=== PATIENT | female | born 1945 | race Hispanic/Latino ===

== ENCOUNTER 2018-07-30 15:35 | Inpatient (IN) | payer MEDICARE, OTHER ==
[2018-07-30 15:47] LABS: #Basophils 0.1 thou/uL (0.0-0.2); #Eosinphils 0.1 thou/uL (0.0-0.7); #Lymphocytes 3.4 thou/uL (1.20-3.40); #Monocytes 0.6 thou/uL (0.11-0.59); #Neutrophils 5.9 thou/uL (1.40-6.50); %Basophils 0.5 % (0.0-1.0); %Eosinophils 1.1 % (0.0-10.0); %Lymphocytes 33.7 % (21.0-51.0); %Neutrophils 58.7 % (42.0-75.0); Hemoglobin 12.1 g/dL (12.0-16.0); Mean Corpuscular HGB CONC 33.6 g/dL (32.0-36.0); Mean Corpuscular Hemoglobin 32.2 pg (27.0-31.0); Mean Corpuscular Volume 95.9 fL (78.0-98.0); Mean Platelet Volume 8.4 fL (7.4-10.4); Platelet Count 263 thou/uL (130-400); RBC Distribution Width 11.3 % (11.5-14.5); Red Blood Cell (RBC) Count 3.75 mill/uL (4.20-5.40); White Blood Cell (WBC) Count 10.1 thou/uL (4.8-10.8)
[2018-07-30 15:53] LABS: INR-International Normal Ratio 1.1; PTT 24.9 SEC (22.9-36.1); Prothrombin Time 14.1 SEC (12.0-14.7)
--- NOTE | 2018-07-30 15:53 | CT ---
CT head noncontrast HISTORY: Altered mental status. Left-sided weakness. FINDINGS: Centered at the chaidez-white junction the right frontal lobe is a large lobular mixed density predominantly hyperdense fluid collection surrounded by a small amount of vasogenic edema. The hematoma measures up to 6.6 cm in length by 3.1 cm wide. Diffuse effacement of the right cerebral sul ci. Effacement of the right lateral ventricle with approximately 0.6 cm leftward shift of the septum pellucidum. Very small amount of subarachnoid hyperdense fluid is present within the cerebral sulci closest to th e intraparenchymal hematoma. IMPRESSION: Large right frontal intraparenchymal acute hematoma with small amount of adjacent subarac hnoid hemorrhage and significant cerebral edema, as detailed above. Findings were called to Dr. Thomason in the emergency department at 1543 hours. Code CR
[2018-07-30 16:03] LABS: ALT (SGPT) 23 U/L (8-55); AST (SGOT) 22 U/L (5-34); Albumin 4.1 g/dL (3.4-4.8); Alkaline Phosphatase 85 U/L (40-150); Anion Gap 14 mmol/L (10-20); BUN (Urea Nitrogen) 23 mg/dL (9.8-20.1); Bilirubin, Total 0.2 mg/dL (0.2-1.2); CK (CPK) 85 U/L (29-168); Calc. Creatinine Clearance 0 mL/min (70-130); Calcium 8.8 mg/dL (7.8-10.44); Carbon Dioxide 21 mmol/L (23-31); Chloride 109 mmol/L (98-107); Estimated GFR-MDRD 79; Globulin 2.5 g/dL (2.4-3.5); Glucose 138 mg/dL (83-110); Potassium 4.1 mmol/L (3.5-5.1); Protein, Total 6.6 g/dL (6.0-8.3); Sodium 140 mmol/L (136-145)
[2018-07-30] MEDS ORDERED: Ondansetron PF 4 MG/2 ML Vial ONE (18:05)
[2018-07-30] MEDS ORDERED: Sodium Chloride 0.9% 1,000 ML IV SCH (18:29)
[2018-07-30] MEDS ORDERED: Ondansetron PF 4 MG/2 ML Vial IVP PRN ×2 (18:29→20:09)
[2018-07-30] MEDS: niCARdipine HCl 25 MG in Sodium Chloride 0.9% 250 ML 240 ML IVPB PRN (19:28)
[2018-07-30] MEDS ORDERED: Docusate 100 MG CAP PO PRN (20:09)
[2018-07-30] MEDS ORDERED: Mag-Al 1200 mg/1200 mg/30 ML UDCUP PO PRN (20:09)
[2018-07-30] MEDS ORDERED: Bisacodyl 10 MG SUPP PR PRN (20:09)
[2018-07-30] MEDS ORDERED: Milk Of Magnesia 30 ML UDCUP PO PRN (20:09)
[2018-07-30] MEDS: Sodium Chloride 0.9% 1,000 ML IV SCH (21:16)
[2018-07-30] MEDS: Famotidine/PF 20 mg/2ml Vial SLOW IVP SCH (21:16)
--- NOTE | 2018-07-30 23:49 | CON ---
DATE OF CONSULTATION: 07/30/2018 SERVICE: Pulmonary Medicine. REASON FOR CONSULTATION: ICU patient. HISTORY OF PRESENT ILLNESS: The patient is a 72-year-old white female. She is essentially unknown to our medical record system. She has a history of an intraparenchymal hemorrhage. Apparently, she is visiting from [place] and was in her usual state of health when she had a sudden onset of neurologic symptoms. She was discovered to have a hemorrhagic lesion in the brain, consistent with her neurologic presentation. Neurosurgery saw the patient, but suggested that there was currently no roll for surgical intervention. She was tucked into the ICU for very close neurologic followup. I was consulted because there was a change in her NIH scale when she went from the emergency department to the ICU and they notified me. I wanted to see her just in case she further decompensated throughout the evening. She cannot provide any additional elements of the history at this moment. PAST MEDICAL HISTORY: Unknown. PAST SURGICAL HISTORY: Completely unknown. FAMILY HISTORY: Completely unknown. SOCIAL HISTORY: Completely unknown. ALLERGIES: COMPLETELY UNKNOWN. HOME MEDICATIONS: Completely unknown. Her inpatient medications were reviewed. REVIEW OF SYSTEMS: Cannot be obtained because of the patient's neurologic injury. PHYSICAL EXAMINATION: VITAL SIGNS: Afebrile, pulse 95, blood pressure 159/94, respirations 21, saturation 100% on room air. GENERAL: The patient is awake and alert. She is in no apparent distress. HEENT: Normocephalic and atraumatic. Sclerae are white. Conjunctivae are pink. Oral mucosa is moist without lesions. LUNGS: Decent air entry. Minimal rhonchi are present. There is no prolonged expiratory phase or wheezing present. HEART: Tachycardic. Regular. ABDOMEN: Soft, nontender, and nondistended. Bowel sounds are positive. MUSCULOSKELETAL: No cyanosis or clubbing. There is no pitting in the bilateral lower extremities. NEUROLOGIC: She has a rightward gaze preference. Pupils are equal, round, and reactive. With noxious stimuli to the left upper extremity, she postures. With noxious stimuli to the left lower extremity, it is either very subtle withdrawal , or crossed extensor reflex. She spontaneously and appropriately moves her right upper extremity, and right lower extremity. Strength seems to be 4+/5 in the right upper and lower extremities. : No Macias catheter currently in place. LABORATORY DATA: WBC 10.1, hemoglobin 12.1, platelets 263,000. INR 1.1. Basic metabolic profile and liver function studies are otherwise unremarkable. Troponin is negative x1. IMAGING: CT of the brain demonstrates a large right frontal temporal hematoma. There is small amount of midline shift present. ASSESSMENT: 1. Intraparenchymal hemorrhage. 2. Hypertension. DISCUSSION AND PLAN: At this point, I agree with Neurosurgery that medical management is indicated. This a non-dominant hemisphere intraparenchymal hemorrhage. That being said, since it is quite superficial, if there is clinical deterioration, surgical intervention may have a roll. I will be aggressive with blood pressure control and do what we can to keep her systolics under 140. Cardene drip has been initiated to make certain we maintain tight control of blood pressures. Once family arrives, we will do what we can to get a touch more history. At this point, her Orting Coma Scale is 12. As such, there is no role for invasive endotracheal tube. She remains at high risk for developing pneumonia. If she has a fever, tobias culture and chest x-ray will be done and I will have a low threshold for starting empiric antibiotics. Pulmonary Critical Care will continue to follow very closely. She will remain in the ICU, so we can watch her neurologic function every hour. 70 minutes have been devoted to this patient in various activities. I personally reviewed all imaging studies and laboratory data noted within this document. For fifty percent of this time, I was interacting with the patient at the bedside or coordinating care with the care team. For the remainder of the time I was immediately available to the patient in the hospital unit. Job ID: [id number] [facility]
--- NOTE | 2018-07-31 02:07 | HP ---
HISTORY OF PRESENT ILLNESS: Ms. Valentin is a 72-year-old female who reported to the hospital today for left-sided facial droop, altered mental status and left-sided weakness. The patient also has a left-sided visual field neglect. Neurosurgery was consulted given the CT shows intraparenchymal hemorrhage on the right side. As I entered the emergency room, the patient was resting in her hospital bed. She has recently vomited and is complaining about the wetness on the sheets and her clothing. She has neglect of her left side and looks only through the right. She responds minimally to questions, but follows commands. She shows me her thumb on her right hand and is able to squeeze my hands. She also follows commands on the right lower extremity wiggling her toes, moving her leg. The patient does not complain of any pain, just some nausea at this time. The patient has withdrawal to painful stimuli in the left lower extremity and no response though in left upper extremity. Brief conversation with the patient's treating neurologist and her via phone. Her gave consent to discuss treatment and her history with her treating physicians, resident at [facility]. The patient has a history of previous bleed in 2005 on the right temporal area as well. She is currently being treated following. She has recovered well from that previous stroke with some chronic cognitive difficulties. REVIEW OF SYSTEMS: A 10-point review of systems has been completed and is negative other than stated in the above HPI. ALLERGIES: NO KNOWN DRUG ALLERGIES. MEDICATIONS: No reported medications. SOCIAL HISTORY: Unable to obtain at this time. PHYSICAL EXAMINATION: VITAL SIGNS: Temperature is 98.0, blood pressure 143/57, heart rate 69, respirations 18, and O2 saturation 100% on room air. CONSTITUTIONAL: The patient in normotensive, afebrile and appeared nontoxic. HEENT: Head is normocephalic and atraumatic. Pupils are unequal, the left is dilated and unreactive to light. She has left-sided facial droop and left-sided neglect. Hearing is intact. Moist mucous membranes. EXTREMITIES: The patient is moving and following commands with the right upper extremity, gives me a good thumbs-up and good strong squeeze and moving shoulder and elbow well. The right lower extremity, she is wiggling her toes and moving her knees, is not following commands as clearly as on the right lower extremity. Left lower extremity, she is withdrawing to painful stimuli and the left upper extremity, she is not moving at all to painful stimuli or any other sensations. NEUROLOGIC: The patient is awake and alert, but she has a left-sided facial droop. She has right gaze, left-sided neglect. She had 0/5 strength in the left upper extremity, and in the left lower extremity, withdraws to pain. She does not seem to react to any sensation on the left side of her face. She can feel the right side of her face. Her right pupil is reactive, the left pupil is dilated and unreactive. Hearing is intact. Speech is spontaneous; however slurred. RESPIRATORY: Normal work of breathing on room air. Symmetrical chest rise. CARDIAC: Regular rate and rhythm. Normal S1, S2. IMAGING: CT of the brain shows a half a large right frontal intraparenchymal hemorrhage with a small of adjacent subarachnoid hemorrhage and significant cerebral edema. She has approximately 6 mm of leftward shift of the midline. ASSESSMENT AND PLAN: Ms. Valentin is a 72-year-old female, who sustained a large intraparenchymal hemorrhage. She will be admitted to the hospital. We will get neuro checks every 2 hours. We will keep her blood pressure in the [address] with a repeat CT scan in the morning. She is not on any blood thinners, which is a good news. Her hemorrhage does reach the surface of the brain, which gives us the opportunity if the patient and her would like us to operate, we would be able to more easily evacuate the clot. If there is any, which we do not intend to operate immediately and if there is any deterioration, we can discuss with the patient's at earlier time. Job ID: [id number]
--- NOTE | 2018-07-31 06:49 | CT ---
CT OF THE BRAIN WITHOUT CONTRAST: Date: 07/31/18 INDICATION: Follow-up intraparenchymal hemorrhage. COMPARISON: Prior exam dated 07/30/18. FINDINGS: Since the comparison examination dated 07/30/18 at 1538 hours, the intraparenchymal hematoma in the r ight frontal lobe has increased in size, now measuring 7.6 x 4.7 cm, with slightly worsening surround ing vasogenic edema. There is more pronounced sulcal effacement of the right frontal cerebral convexi ty. There is worsening right to left midline shift of 7.7 mm. No hydrocephalus is evident. Basilar ci sterns remain patent. Skull and extracranial soft tissues are unremarkable appearing. IMPRESSION: Slight worsening of the intraparenchymal hematoma with vasogenic edema involving the right frontal lo be. There is worsening right to left midline shift. Findings were called to Justa Mccauley at 0448 hours on 07/31/18. CODE CR. POS: [facility]
[2018-07-31] MEDS: niCARdipine HCl 25 MG in Sodium Chloride 0.9% 250 ML 240 ML IVPB PRN ×2 (08:06→16:44)
[2018-07-31] MEDS ORDERED: Acetaminophen 1,000 MG in Premix Bag 1 BAG IVPB PRN (08:15)
[2018-07-31] MEDS ORDERED: diphenhydrAMINE 50 MG/ML VIAL IVP PRN (08:16)
--- NOTE | 2018-07-31 09:05 | PRG ---
DATE OF SERVICE: 07/31/2018 I met Jayden Valentin in her ICU room this morning. She was admitted yesterday with a lobar intracerebral hemorrhage. 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 She was treated for this at [facility] by Neurology. This was in 2016. Now, we are three years later with a similar event. She was found down in her house yesterday and brought to the emergency department, where an intracerebral hemorrhage more superior to her previous hemorrhage was identified. Although there is some mass effect and local moderate shift from right to left, she is awake on purposeful. On seeing her this morning, she is a little less responsive, but she does move her arms purposefully. She follows some commands. She opens her eyes to significant stimulus. Otherwise, she rests comfortably and rearranges her bed clothes. Her vitals have all been stable overnight. I do not see a fever or any high blood pressures recorded. I reviewed CT image of the brain this morning. The vasogenic edema surrounding the hemorrhage has increased in size. The hemorrhage itself is slightly increased in size. The shift is increased. I had a long discussion with Mr. Valentin about treatment of his . This lobar intracerebral hemorrhage reaches the cortical surface. As such, she falls into a category of intracerebral hemorrhage patients, where there was some benefit to surgical intervention as far as shortening her length of stay and decreasing complications. Because of the increase in size and the slightly worsening neurological examination, I offered surgery to Mr. Valentin. He refused to have any surgery done here. He wants to get her back to [facility] as soon as possible. I explained that she is unsafe to travel across the country currently. I asked him to identify some local hospitals here or in [place], where he would prefer to have her treated. He does not want to transfer her locally. This puts us in a bit of a bind. I am going to watch her neurological examination over the next two days, but I anticipate some more deterioration. If she deteriorates anymore, she will need intubation to protect her airway. Eventually, we will need to talk about a tracheostomy and a gastrostomy. We will use medications to decrease the swelling as best we can, but operative intervention would be my preference currently. I will plead with him for operative intervention, if she deteriorates. He is open to the idea of me returning to ask for his approval for surgery, but right now, he does not want it to happen. Job ID: [id number] MTDD
[2018-07-31] MEDS: Famotidine/PF 20 mg/2ml Vial SLOW IVP SCH ×2 (10:31→20:57)
[2018-07-31] MEDS: Sodium Chloride 0.9% 1,000 ML IV SCH ×2 (10:32→18:37)
--- NOTE | 2018-07-31 12:27 | RAD ---
Abdomen one view HISTORY: Dobbhoff placement. FINDINGS: Visualized bowel gas pattern is nonspecific. Dobbhoff feeding catheter is coiled over the u pper mid abdomen with the metallic tip over the expected location of the gastric fundus.
--- NOTE | 2018-07-31 16:30 | PRG ---
DATE OF SERVICE: 07/31/2018 SERVICE: Pulmonary Medicine. INTERVAL HISTORY: The patient is doing fine from respiratory standpoint. She has not had any significant decline in neurologic function overnight. She cannot provide any additional elements of the history. Otherwise, there has been no interval change to her condition. She did not have any fevers. She seems to be protecting her airway at this point. PHYSICAL EXAMINATION: VITAL SIGNS: Afebrile. Pulse 79, blood pressure 124/58, respirations 14, saturation 97% on room air. GENERAL: The patient is stuporous/somnolent. HEENT: Normocephalic and atraumatic. Sclerae white. Conjunctivae pink. Oral mucosa is moist without lesions. LUNGS: Decent air entry. No prolonged expiratory phase or wheezing is present. HEART: Normal rate regular. ABDOMEN: Soft, nontender, nondistended. Bowel sounds are positive. MUSCULOSKELETAL: No cyanosis or clubbing. There is no pitting in the bilateral lower extremities. NEUROLOGIC: I see roughly the same neurologic exam that I saw yesterday evening. IMAGING STUDIES: CT of the brain demonstrates slight worsening of the intraparenchymal hematoma with vasogenic edema involving the right frontal lobe. Worsening of midline shift. ASSESSMENT: 1. Intraparenchymal hemorrhage. 2. Hypertension. DISCUSSION AND PLAN: At this point, we will continue our supportive measures. Neurosurgery is trying to discuss the risks of not pursuing surgery at this moment. We will initiate feeds and place a Dobbhoff tube to facilitate this. I will introduce some p.o. blood pressure medications. We will involve physical therapy and occupational therapy, but strict bedrest is mandatory. IV fluids will be interrupted when she is tolerating tube feeds. We will also empirically initiate some antibiotics as there was a report of vomitus and possible aspiration in the Emergency Department. Critical Care will continue to follow along, and she will certainly need to remain in the ICU for frequent neuro checks. Job ID: [id number] [facility]
[2018-07-31] MEDS: Carvedilol 3.125 MG TAB PO SCH (16:58)
[2018-07-31] MEDS: Amoxicillin/Potassium Clav 400 mg/5 ml Oral Suspension PO SCH (20:57)
[2018-08-01 07:01] LABS: #Basophils 0.1 thou/uL (0.0-0.2); #Lymphocytes 1.8 thou/uL (1.20-3.40); #Monocytes 0.6 thou/uL (0.11-0.59); #Neutrophils 9.1 thou/uL (1.40-6.50); %Basophils 0.5 % (0.0-1.0); %Eosinophils 0.2 % (0.0-10.0); %Lymphocytes 15.5 % (21.0-51.0); %Monocytes 5.1 % (0.0-10.0); %Neutrophils 78.7 % (42.0-75.0); Mean Corpuscular HGB CONC 33.5 g/dL (32.0-36.0); Mean Corpuscular Hemoglobin 31.7 pg (27.0-31.0); Mean Corpuscular Volume 94.8 fL (78.0-98.0); Platelet Count 243 thou/uL (130-400); RBC Distribution Width 11.4 % (11.5-14.5); Red Blood Cell (RBC) Count 3.48 mill/uL (4.20-5.40); White Blood Cell (WBC) Count 11.6 thou/uL (4.8-10.8)
[2018-08-01 07:22] LABS: Anion Gap 11 mmol/L (10-20); BUN (Urea Nitrogen) 16 mg/dL (9.8-20.1); Calc. Creatinine Clearance 78 mL/min (70-130); Calcium 8.2 mg/dL (7.8-10.44); Carbon Dioxide 24 mmol/L (23-31); Chloride 110 mmol/L (98-107); Estimated GFR-MDRD 78; Glucose 142 mg/dL (83-110); Potassium 3.6 mmol/L (3.5-5.1); Sodium 141 mmol/L (136-145)
[2018-08-01] MEDS ORDERED: Carvedilol 3.125 MG TAB PO SCH ×2 (08:00→17:00)
[2018-08-01] MEDS: Carvedilol 3.125 MG TAB PO SCH (08:00)
[2018-08-01] MEDS: Sodium Chloride 0.9% 1,000 ML IV SCH (08:01)
[2018-08-01] MEDS: Famotidine/PF 20 mg/2ml Vial SLOW IVP SCH ×2 (08:01→20:41)
[2018-08-01] MEDS: Amoxicillin/Potassium Clav 400 mg/5 ml Oral Suspension PO SCH ×2 (08:02→20:41)
--- NOTE | 2018-08-01 08:38 | CT ---
CT BRAIN PERFORMED WITHOUT CONTRAST ENHANCEMENT: Date: 08/01/18 HISTORY: Follow-up of intraparenchymal hemorrhage. FINDINGS: The large area of intraparenchymal hemorrhage in the right frontal lobe with surrounding vasogenic ed casi appears fairly similar in appearance. Shift of midline structures is slightly greater than 7 mm t o the left again noted. No new hemorrhage. IMPRESSION: Stable right-sided intraparenchymal hemorrhage and mass effect. POS: [facility]
--- NOTE | 2018-08-01 10:30 | PRG ---
DATE OF SERVICE: 08/01/2018 SERVICE: Pulmonary Medicine. INTERVAL HISTORY: The patient is tolerating tube feeds just fine. Mentation osullivan, things are stable, if not slightly improved over the last 24 hours. She had repeat imaging today. There has been no interval change to her condition otherwise. PHYSICAL EXAMINATION: VITAL SIGNS: Afebrile, pulse 63, blood pressure 130/53, respirations 18, and saturation 94% on room air. GENERAL: The patient is awake and alert this morning. She opens up her eyes with minimal stimulation. She is talking in some very simple sentences. Her speech is little bit tough to understand, but she is saying appropriate words. HEENT: Normocephalic and atraumatic. Sclerae white. Conjunctivae pink. Oral mucosa is moist without lesions. LUNGS: Decent air entry. I do not appreciate rhonchi today. No prolonged expiratory phase or wheezing is appreciated. HEART: Normal rate regular. ABDOMEN: Soft, nontender, nondistended. Bowel sounds are positive. MUSCULOSKELETAL: No cyanosis or clubbing. There is no pitting in the bilateral lower extremities. NEUROLOGIC: She withdraws from noxious stimuli to the left lower extremity. She seems to withdraw in the left upper extremity, though she has more profound weakness there. Her pupils are equal, round, and reactive. She has a rightward gaze preference. She is following commands with the upper and lower extremity on the right by putting her thumb in the air, and wiggling her toes on command. She is speaking in simple phrases, which are appropriate. Her speech is tough to understand. Her level of consciousness is slightly decreased, but she is no longer stuporous. LABORATORIES: WBC 11.6, hemoglobin 11.0, and platelets 243,000. INR 1.1. Sodium 141. Basic metabolic profile is otherwise unremarkable. IMAGING: CT of the brain demonstrates intraparenchymal hemorrhage, which is roughly stable. ASSESSMENT: 1. Intraparenchymal hemorrhage. 2. Hypertension. DISCUSSION AND PLAN: We will continue supportive measures. I had a conversation yesterday with the patient's . He understands that he and Neurosurgery will decide together whether or not the patient would want to pursue a surgical intervention. He understands that my primary role here is to determine whether or not endotracheal tube needs to be placed in order to protect her airway. Since she is tolerating tube feeds, I will interrupt her IV fluids. Blood pressure medications will be escalated gently, and will will wean the Cardene drip as tolerated. Job ID: [id number] [facility]
--- NOTE | 2018-08-01 11:16 | PRG ---
DATE OF SERVICE: 08/01/2018 I saw Marlyn Valentin in her ICU room this morning. Her was not at the bedside. Ms. Valentin is not waking up to have any complaints. Per nursing reports, spontaneous and purposeful movement more so on the right than the left, but the left has had some movement, especially in the legs. She had a low-grade fever at 100.6, but she is on amoxicillin. On examination, Ms. Valentin opens her eyes to loud voice. She spoke to me in a few words. Could comprehend the words and these seemed a bit confused and then she drifts back to sleep. She did squeeze my hand when I asked her to do. She did wiggle her right toes when I asked her to. She required some stimulation on the left side for her to be, aware of that side and move it purposefully. Her left arm is not moving as much as her left leg. I reviewed CT imaging of the brain this morning. This shows lobar intracerebral hemorrhage likely related to amyloid angiopathy. This is in the right hemisphere above an area of encephalomalacia related to her prior hemorrhage in 2016. Hemorrhage is not changed in size since yesterday. The swelling is causing some midline shift, which has only increased to about half a millimeter compared to what it was before. I believe Ms. Valentin would recover faster with surgical intervention. Her has refused to allow me to do it. We will continue to monitor her. If she has neurological deterioration, she warrants surgery. She may require intubation. She is going to fail her swallowing test and a percutaneous endoscopic gastrostomy will be recommended. I cannot say what the is going to respond to that recommendation. Job ID: [id number] MTDD
[2018-08-01] MEDS ORDERED: Carvedilol 6.25 MG TAB PO SCH (19:45)
[2018-08-02] MEDS: niCARdipine HCl 25 MG in Sodium Chloride 0.9% 250 ML 240 ML IVPB PRN (06:35)
--- NOTE | 2018-08-02 07:32 | PRG ---
DATE OF SERVICE: 08/02/2018 Marlyn Valentin is now approaching three days out from intracerebral hemorrhage. Today would be the day of maximal swelling. Overnight, the nurses did not report any issues and that she still follows commands on the right side. When I entered the room, Ms. Valentin is resting comfortably. If I say her name loudly enough, she opens her eyes and lifts her thumb to command and wiggles her toes to command. She withdraws the left lower extremity and left upper extremity, but she is not moving them spontaneously to command yet. She said a few words to me yesterday and mouthed a good morning this morning. Yesterday, sodium is 141. Labs are pending now. CT scan is pending as well. There is no change between yesterday's CT scan and the day before. If we have another stable scan today, that should be the last one. Ms. Valentin is going to make a slow, but steady recovery from this over time. Hopefully, she does not have any complications like DVT or pneumonia. Eventually, she will need placement in to a fci facility or inpatient rehabilitation depending on how fast she improves. Whereas, Ms. Valentin might have benefited from a craniotomy for evacuation of the hematoma, her was adamant that he did not want surgery to be performed here. We were respecting those wishes and doing the best we can medically. Job ID: [id number]
[2018-08-02] MEDS: Famotidine/PF 20 mg/2ml Vial SLOW IVP SCH ×2 (08:25→20:56)
[2018-08-02] MEDS: Carvedilol 6.25 MG TAB PO SCH ×2 (08:25→16:39)
[2018-08-02] MEDS: Amoxicillin/Potassium Clav 400 mg/5 ml Oral Suspension PO SCH ×2 (08:26→20:56)
--- NOTE | 2018-08-02 08:26 | CT ---
CT HEAD WITHOUT CONTRAST: INDICATIONS: Cranial hemorrhage. Fall. FINDINGS: Redemonstration of a large, mixed density hematoma occupying the anterior aspect of the right cerebral hemisphere with associated mass effect and midline shift. Prev ious 7 mm of leftward subfalcine herniation is grossly stable. Redemonstration of internal hemorrhag e/fluid layering. Otherwise, no additional significant interval change. IMPRESSION: Redemonstration of large, mixed density hematoma, occupying the anterior right cerebral hemisphere, w ith associated mass effect and leftward subfalcine herniation. Continued followup is recommended. POS: [facility]
[2018-08-02 08:49] LABS: Anion Gap 10 mmol/L (10-20); BUN (Urea Nitrogen) 14 mg/dL (9.8-20.1); Calc. Creatinine Clearance 88 mL/min (70-130); Calcium 8.3 mg/dL (7.8-10.44); Carbon Dioxide 24 mmol/L (23-31); Chloride 109 mmol/L (98-107); Estimated GFR-MDRD Greater than 90; Glucose 114 mg/dL (83-110); Potassium 3.4 mmol/L (3.5-5.1); Sodium 140 mmol/L (136-145)
--- NOTE | 2018-08-02 10:38 | PRG ---
DATE OF SERVICE: 08/02/2018 SUBJECTIVE: This patient will wake up when stimulated. She tries to verbalize. She says she is doing okay. She cannot move her left side very well. OBJECTIVE: VITAL SIGNS: Temperature is 99.9, pulse 56, blood pressure 132/54, O2 saturation 95% on room air. Total intake 3040, output 2200. HEENT: Unremarkable except for Dobbhoff tube in place. NECK: No JVD. LUNGS: Coarse rhonchi bilaterally. CARDIAC: S1 and S2. Regular. ABDOMEN: Soft and nontender. EXTREMITIES: No edema. IMAGING DATA: Head CT shows no change in the right intraparenchymal bleed. LABORATORY DATA: Sodium 140, potassium 3.4, chloride 109, CO2 of 24, BUN 14, creatinine 0.6, glucose 114. ASSESSMENT: 1. Intraparenchymal brain hemorrhage. 2. Hypertension. 3. Hypokalemia. PLAN: 1. Replace potassium. 2. Start amlodipine and try to get her off the nicardipine drip. 3. Apparently the patient's is refusing surgical intervention for the bleed, so this is being treated medically. Job ID: [id number]
[2018-08-02] MEDS: Amlodipine 10 MG TAB PER TUBE SCH (11:46)
--- NOTE | 2018-08-02 14:54 | CON ---
DATE OF CONSULTATION: PRIMARY CARE PROVIDER: Unknown. CONSULTING PHYSICIAN: Neurosurgery, Love Alcaraz MD REASON FOR CONSULTATION: Management of medical comorbidities. HISTORY OF PRESENT ILLNESS: Ms. Valentin is a pleasant 72-year-old lady, who was seen at [facility] on August 02, 2018, for management of medical comorbidities. She was admitted to this hospital on July 30, 2018, for large intraparenchymal hemorrhage. Neurosurgery Service recommended surgical intervention. However, the patient's wished to have conservative measures at this time. I am unable to obtain any history from Ms. Valentin. She is mumbling, but the words are not clear. REVIEW OF SYSTEMS: Could not be completed secondary to patient's nonverbal status. PAST MEDICAL HISTORY: The patient reportedly had stroke in the past. She is also on memantine, suggesting a prior diagnosis of dementia. PAST SURGICAL HISTORY: Could not obtain. ALLERGIES: NO KNOWN DRUG ALLERGIES. HOME MEDICATIONS: Memantine 10 mg daily. SOCIAL HISTORY: Unable to obtain. FAMILY HISTORY: Could not obtain. PHYSICAL EXAMINATION: GENERAL: On examination, Ms. Valentin is sleepy, but arousable, not in acute distress. VITAL SIGNS: Blood pressure is 135/54, pulse 53, oxygen saturation is 96% on room air. She is afebrile. EYES: No scleral icterus, no conjunctival pallor. She has arcus senilis. ENT: Moist mucosal membranes. No oropharyngeal erythema or exudates. NECK: Supple, nontender, trachea midline. RESPIRATORY: Accessory muscles of breathing are not active. Chest wall movements are symmetric bilaterally. LUNGS: Clear to auscultation without wheeze, rhonchi, or crepitations. CARDIOVASCULAR: S1 and S2 are heard, regular. Peripheral pulses palpable. No carotid bruit. No pericardial rub. ABDOMEN: Soft, nontender, bowel sounds heard. NEUROLOGIC: Full neurologic examination was not possible secondary to patient's noncooperation. She has left facial droop. She also has left hemiplegia and left hemineglect. SKIN: No rashes or subcutaneous nodules. LYMPHATIC: No cervical lymphadenopathy. PSYCHIATRIC: Unable to assess mood, affect or orientation to person, place, or time. MUSCULOSKELETAL: Left-sided weakness. LABORATORY DATA: Ms. Valentin's labs and investigations were reviewed. She has normal sodium, decreased potassium of 3.4, normal creatinine, and normal blood urea nitrogen today. Repeat CT scan of the brain, noncontrast, showed redemonstration of large mixed density hematoma occupying the anterior right cerebral hemisphere with associated mass-effect and leftward subfalcine herniation. ASSESSMENT AND PLAN: Ms. Valentin is a pleasant 72-year-old lady, who was seen at [facility] on August 02, 2018. Her problem list includes: 1. Intracranial hemorrhage: Ms. Valentin is admitted to the hospital for intracranial hemorrhage. She is being managed by Neurosurgery Service. Further decisions regarding surgery versus conservative management depending on discussions between Neurosurgery Service and patient's family. 2. Hypokalemia: Potassium is being replaced. 3. Dementia: Suspected. We will resume memantine when patient is able to take oral medications. Given her current status, it is very likely that she may need a percutaneous feeding tube. 4. Level of risk: Moderate. 5. Level of complexity: Moderate. Job ID: [id number]
[2018-08-03] MEDS: niCARdipine HCl 25 MG in Sodium Chloride 0.9% 250 ML 240 ML IVPB PRN ×2 (00:29→06:14)
[2018-08-03 06:16] LABS: Anion Gap 12 mmol/L (10-20); BUN (Urea Nitrogen) 19 mg/dL (9.8-20.1); Calc. Creatinine Clearance 87 mL/min (70-130); Calcium 8.7 mg/dL (7.8-10.44); Carbon Dioxide 23 mmol/L (23-31); Chloride 107 mmol/L (98-107); Estimated GFR-MDRD 89; Glucose 134 mg/dL (83-110); Potassium 3.7 mmol/L (3.5-5.1); Sodium 138 mmol/L (136-145)
--- NOTE | 2018-08-03 07:37 | CT ---
CT HEAD NONCONTRAST: INDICATIONS: Intracranial hemorrhage. Followup. COMPARISON: Exam from the previous day. FINDINGS: Again demonstrated, there is a large volume of mixed density hematoma with surrounding vasogenic santiago a occupying the anterior and right cerebral hemisphere, with associated mass effect and midline shift . The 7 mm of leftward subfalcine herniation at the level of the septum pellucidum is grossly stable . There is suggestion of inferiorly directed mass effect involving the temporal lobe with a slight d egree of right-sided uncal herniation, which may be developing. A slight asymmetric of the left temp oral horn is also noted. There is stable right frontal lobe encephalomalacia. IMPRESSION: Re demonstration of a large, mixed density hematoma with prominent vasogenic edema centered at the an terior right cerebral hemisphere, with prominent mass effect and midline shift. Suggestion of inferi hank directed mass effect as well, with the potential for developing right uncal herniation and asymm etric prominence of the left temporal horn that may relate to a component of ventricular trapping. C lose continued followup in this regard is recommended. POS: [facility]
[2018-08-03] MEDS: Carvedilol 6.25 MG TAB PO SCH ×2 (08:08→17:09)
[2018-08-03] MEDS: Famotidine/PF 20 mg/2ml Vial SLOW IVP SCH ×2 (08:08→20:00)
[2018-08-03] MEDS: Amoxicillin/Potassium Clav 400 mg/5 ml Oral Suspension PO SCH ×2 (08:09→19:55)
--- NOTE | 2018-08-03 08:44 | PRG ---
DATE OF SERVICE: 08/03/2018 SUBJECTIVE: The patient remains in the CCU on a Cardene drip. She would not communicate with me, but will look around. She moves her right side spontaneously. OBJECTIVE: VITAL SIGNS: Temperature 98.4, pulse 62, blood pressure 130/59, 24-hour intake 2913, output 2450. HEENT: Has facial droop on the right. NECK: No JVD. CHEST: Clear to auscultation. CARDIAC: S1, S2 regular, without murmur. ABDOMEN: Soft. Nontender. EXTREMITIES: No edema. LABORATORY DATA: Sodium 138, potassium 3.7, chloride 107, CO2 of 23, BUN 19, creatinine 0.6, glucose 134. Brain CT from this morning demonstrated mixed density hematoma with prominent vasogenic edema centered at the right cerebral hemisphere with prominent mass effect and midline shift. Radiologist felt this had enough mass effect for possibility of herniation. ASSESSMENT: 1. Intraparenchymal brain hemorrhage. 2. Hypertension. 3. Hypokalemia. PLAN: The goal is to wean her off the nicardipine drip today. Her medical issues seem to be stable otherwise. She is currently receiving amlodipine and carvedilol for her hypertension. I think, goal systolic pressure should be less than 150 to wean her off the drip. Job ID: [id number]
--- NOTE | 2018-08-03 09:34 | RAD ---
EXAM: XR Abdomen 1 View/KUB PROVIDED CLINICAL HISTORY: Dobbhoff feeding tube placement evaluation. COMPARISON: 07/31/2018 FINDINGS: There is been repositioning of the Dobbhoff feeding tube. The Dobbhoff feeding tube is coiled overlyi ng the central abdomen and overlies expected location of the body of the stomach. Bowel gas pattern is nonspecific. No other interval change. IMPRESSION: Dobbhoff feeding tube coiled overlying the central abdomen which overlies the expected location of th e body of the stomach.
--- NOTE | 2018-08-03 11:34 | PRG ---
DATE OF SERVICE: 08/03/2018 Jessica Valentin is now on the 4th day of her hospital admission for what appears to be a right-sided frontoparietal amyloid hemorrhage. Early in her admission, Dr. Alcaraz had suggested heavily decompressive hemicraniectomy with evacuation of a superficial clot. The patient's family has refused repeatedly at this time. Now, we are just managing her medically and conservatively. She remains in the ICU. She does follow commands on the right side, although intermittently. Her level of consciousness since morning is somewhat subdued. Repeat CT scanning revealed stable hemorrhage and maybe very marginally increased edema if any around this clot. Blood pressures and pulse rate as well as oxygenation all appear normal to me today. Most recently, at 8 o'clock this morning, it was 130/59 and 58 and 95 respectively. The Hospitalist Service has also seen the patient as of yesterday. We appreciate their consultation and recommendations. We will discuss plan going forward with Dr. Dominguez as we are still only pursuing conservative management at this point. Job ID: [id number]
[2018-08-03] MEDS: Amlodipine 10 MG TAB PER TUBE SCH (12:04)
--- NOTE | 2018-08-03 12:06 | PRG ---
DATE OF SERVICE: 08/03/2018 Ms. Valentin is a 72-year-old female, admitted on the for large intracerebral hemorrhage. The initial evaluation by Neurosurgery in consultation with the family revealed a wish towards nonsurgical management of her hemorrhage. She remains in the ICU. She had a repeat CT examination today, which showed slight worsening of the hemorrhage. The plan moving forward will remain 1 of nonsurgical management. We will sign off to the Hospitalist Service as well as Critical Care service for ongoing medical management. Job ID: [id number]
--- NOTE | 2018-08-03 15:13 | PDOC.PN ---
- Subjective Encounter Start Date: 08/03/18 Encounter Start Time: 15:12 Subjective: care discussed w at bedside -: Pt largely unresponsive But RN reports sometimes she opens eyes to verbal -: stimuli.reportedly moves R side sometimes - Objective MAR Reviewed: Yes Vital Signs & Weight: Vital Signs (12 hours) Temp Pulse Pulse BP BP BP Pulse Ox 08/03/18 12:04 147/72 H 08/03/18 12:00 98.6 F 08/03/18 11:24 60 61 132/81 124/55 L 08/03/18 08:08 130/59 L 08/03/18 08:00 98.4 F 98 08/03/18 04:00 98.8 F Pulse Ox Pulse Ox 08/03/18 12:04 08/03/18 12:00 08/03/18 11:24 98 98 08/03/18 08:08 08/03/18 08:00 08/03/18 04:00 Weight Admit Weight 161 lb Weight 160 lb Most Recent Monitor Data Heart Rate from ECG 65 NIBP 126/80 NIBP BP-Mean 95 Respiration from ECG 16 SpO2 97 I&O: 08/02/18 08/03/18 08/04/18 06:59 06:59 06:59 Intake Total 3040 2913 Output Total 2200 2450 335 Balance 840 463 -335 Result Diagrams: 08/01/18 06:55 08/03/18 05:40 Phys Exam - Physical Examination Constitutional: NAD sitting up in neuro chair w support.johns snot open eyes or follow commands HEENT: moist MMs, sclera anicteric, oral pharynx no lesions Neck: no nodes, no JVD Respiratory: no wheezing, clear to auscultation bilateral Cardiovascular: RRR, no significant murmur Gastrointestinal: soft, non-tender, no distention, positive bowel sounds Musculoskeletal: no edema, pulses present left hemiparesis Skin: no rash Dx/Plan (1) ICH (intracerebral hemorrhage) Code(s): I61.9 - NONTRAUMATIC INTRACEREBRAL HEMORRHAGE, UNSPECIFIED Status: Acute Qualifiers: Intracerebral hemorrhage etiology: nontraumatic Cerebral hemorrhage location: cerebral hemisphere, cortical portion Laterality: right Qualified Code(s): I61.1 - Nontraumatic intracerebral hemorrhage in hemisphere, cortical Comment: NS offered decompressive SX but family refused. Discussed w at bedside (2) Acute encephalopathy Code(s): G93.40 - ENCEPHALOPATHY, UNSPECIFIED Status: Acute Comment: due to #1 (3) Uncontrolled hypertension Code(s): I10 - ESSENTIAL (PRIMARY) HYPERTENSION Status: Acute Comment: improving.Titrate Nicardipine drip off (4) Cerebral amyloid angiopathy Code(s): E85.4 - ORGAN-LIMITED AMYLOIDOSIS; I68.0 - CEREBRAL AMYLOID ANGIOPATHY Status: Chronic (5) H/O: CVA (cerebrovascular accident) Code(s): Z86.73 - PRSNL HX OF TIA (TIA), AND CEREB INFRC W/O RESID DEFICITS Status: Chronic - Plan plan discussed w/ family, DVT proph w/SCDs Unsure if pt will clinically improve or survive this massive ICH.high risk -: of herniation. continues to refuse surgical intervention -: will need to address Code status as high risk of decompensation -: will consult PCT.cont supportive care for now -: Dobhoff in place, start TF/ * .BP better controlled since started on PO meds. add prn anti hypertensives * titrate Cardene drip off * am labs * will follow Review of Systems - Review of Systems Other: can not be obtained due to Unresponsiveness from ICH - Medications/Allergies Allergies/Adverse Reactions: Allergies Allergy/AdvReac Type Severity Reaction Status Date / Time No Known Allergies Allergy Verified 07/31/18 04:41 Medications: Current Medications Acetaminophen (Tylenol) 650 mg PO Q6H PRN PRN Reason: Fever > 101 or Headache Al Hydroxide/Mg Hydroxide (Maalox) 30 ml PO QIDPRN PRN PRN Reason: Dyspepsia Amlodipine Besylate (Norvasc) 10 mg PER TUBE 1200 GOVIND Last Admin: 08/03/18 12:04 Dose: 10 mg Amoxicillin/Clavulanate Potassium (Augmentin 400mg/5ml Oral Susp) 800 mg PO BID GOVIND Stop: 08/05/18 21:01 Last Admin: 08/03/18 08:09 Dose: 800 mg Bisacodyl (Dulcolax) 10 mg NC DAILYPRN PRN PRN Reason: Constipation Carvedilol (Coreg) 6.25 mg PO BID-[facility] Last Admin: 08/03/18 08:08 Dose: 6.25 mg Diphenhydramine HCl (Benadryl) 25 mg IVP Q6H PRN PRN Reason: Itching & Insomnia Docusate Sodium (Colace) 100 mg PO BIDPRN PRN PRN Reason: Constipation Famotidine (Pepcid) 20 mg SLOW IVP Q12HR [facility] Last Admin: 08/03/18 08:08 Dose: 20 mg Nicardipine HCl 25 mg/ Sodium (Chloride) 250 mls @ 0 mls/hr IVPB INF PRN; Protocol PRN Reason: TO KEEP SBP <140 Last Admin: 08/03/18 06:14 Dose: 250 mls Magnesium Hydroxide (Milk Of Magnesium) 30 ml PO BIDPRN PRN PRN Reason: Constipation Ondansetron HCl (Zofran) 4 mg IVP BIDPRN PRN PRN Reason: Nausea/Vomiting Sodium Chloride (Flush - Normal Saline) 10 ml IVF Q12HR [facility] Last Admin: 08/03/18 08:09 Dose: 10 ml Sodium Chloride (Flush - Normal Saline) 10 ml IVF PRN PRN PRN Reason: Saline Flush
[2018-08-03] MEDS ORDERED: cloNIDine 0.1 MG TAB PO PRN (15:21)
[2018-08-03] MEDS: Acetaminophen 325 MG TAB PO PRN (19:47)
[2018-08-03] MEDS: hydrALAZINE 20 MG/ML VIAL SLOW IVP PRN (22:23)
[2018-08-04] MEDS: hydrALAZINE 20 MG/ML VIAL SLOW IVP PRN (05:10)
[2018-08-04] MEDS: Carvedilol 6.25 MG TAB PO SCH ×2 (07:58→19:12)
[2018-08-04] MEDS: Amoxicillin/Potassium Clav 400 mg/5 ml Oral Suspension PO SCH (08:00)
[2018-08-04] MEDS: Famotidine/PF 20 mg/2ml Vial SLOW IVP SCH ×2 (08:00→21:35)
--- NOTE | 2018-08-04 08:45 | PRG ---
DATE OF SERVICE: 08/04/2018 SUBJECTIVE: There has not been much change in her course overnight. She is awake. She has been wean off Levophed. OBJECTIVE: VITAL SIGNS: Temperature 99.1, pulse 69, blood pressure 120/72, O2 saturation 96%. HEENT: Unremarkable, except left naris Dobhoff tube. NECK: No JVD. CHEST: Clear to auscultation. CARDIAC: S1 and S2 regular. ABDOMEN: Soft, nontender. EXTREMITIES: No edema. NEUROLOGICAL: She has left-sided hemiparesis. LABORATORY DATA: No new labs were obtained today. ASSESSMENT: 1. The patient presented with intraparenchymal brain hemorrhage, which has not improved on serial CT scans. 2. Hypertension. 3. Diarrhea. PLAN: 1. She can move out to the stroke floor for continued rehab. 2. Neurosurgery has apparently signed off the case. 3. Continue antihypertensives. 4. C. diff assay. 5. Stop antibiotics. Job ID: [id number]
[2018-08-04 08:51] LABS: Anion Gap 13 mmol/L (10-20); BUN (Urea Nitrogen) 22 mg/dL (9.8-20.1); Calc. Creatinine Clearance 83 mL/min (70-130); Calcium 8.9 mg/dL (7.8-10.44); Carbon Dioxide 23 mmol/L (23-31); Chloride 106 mmol/L (98-107); Estimated GFR-MDRD 85; Glucose 118 mg/dL (83-110); Sodium 138 mmol/L (136-145)
[2018-08-04] MEDS: Amlodipine 10 MG TAB PER TUBE SCH (12:04)
--- NOTE | 2018-08-04 15:47 | PDOC.EVN ---
Event Note - Event Note Event Note: ACP NOTE Care discussed with at bedside. Notified that NS has signed off and there is not any discussion about code status or prognosis-short & alf Pt loves in [place] and visiting. would like to take her back to [place] when possible. He has refused any surgical intervention and feels that condition will get better spontaneously. He feels that pt has shown some improvement. I discussed prognosis in detail with to the best of my knowledge. I've discussed case with Mr LESTER English for Dr. Dominguez and have requested them to continue to follow along as Pt's prognosis seems grim if her cerebral bleed / edema worsen.They will discuss w later as well For now i notified that it seems like she is stable but chances of full recovery as expected by is unrealistic.He feels that she is improving but she is still not able to work w [employer] and still has dense Left hemiparesis and Left neglect. i told him my findings and suspicion that she might need PEG in next week or so .currently dobhoff w TF going.I notified risk of Aspiration & PNA .I reported that she won't be able to fly for next several weeks or even longer.He appreciated my input and will hope for best later i was called back in room by RN as requested by . Saw him again and he discussed firther about how he would likle Speech Therapist to "try harder" with pt and not " give up " on her. i provided reassurances and also that we can not " force" pt to get better. She has prro prognosis as this bleed is bigger than previous ones she has had. understands this for now. Discussed Palliative care team consult and feels that would be intrusive and declines to talk to them for now.cancelled consult. CODE STATUS discussed and he is very sure she is a Full code. He says that there is no doubt in his mind about it and " do everything possible " to save her life including intubation and?or CPR etc if necessary/Pt not able to make any decison for now due to severe ICH and AMS due to that will follow TOTAL TIME SPENT IN ACP DISCUSSION 40 MINUTES
--- NOTE | 2018-08-04 15:57 | PDOC.PN ---
- Subjective Encounter Start Date: 08/04/18 Encounter Start Time: 15:56 Subjective: sitting up in neuro chair.left sided neglect & hemipareis -: able to move R leg & arm. able to call out 's name -: garbled speech .awake - Objective MAR Reviewed: Yes Vital Signs & Weight: Vital Signs (12 hours) Temp Pulse BP Pulse Ox 08/04/18 15:00 99.0 F 08/04/18 12:04 159/64 H 08/04/18 11:00 98.4 F 08/04/18 08:00 98.7 F 97 08/04/18 07:58 159/64 H 08/04/18 05:10 62 159/64 H 08/04/18 04:00 99.1 F Weight Admit Weight 161 lb Weight 160 lb Most Recent Monitor Data Heart Rate from ECG 62 NIBP 128/64 NIBP BP-Mean 85 Respiration from ECG 17 SpO2 99 I&O: 08/03/18 08/04/18 08/05/18 06:59 06:59 06:59 Intake Total 2913 1843 Output Total 2450 2130 420 Balance 053 -879 -420 Result Diagrams: 08/01/18 06:55 08/04/18 08:26 Phys Exam - Physical Examination Constitutional: NAD follows some simple commands HEENT: PERRLA, moist MMs, sclera anicteric left facial droop.Dobhoff in place Neck: no nodes, no JVD Respiratory: no wheezing, clear to auscultation bilateral Cardiovascular: RRR, no significant murmur Gastrointestinal: soft, non-tender, no distention, positive bowel sounds Musculoskeletal: no edema dense L hemiparesis,left neglect & dysarthria Lymphatic: no nodes Psychiatric: normal affect Skin: no rash Dx/Plan (1) ICH (intracerebral hemorrhage) Code(s): I61.9 - NONTRAUMATIC INTRACEREBRAL HEMORRHAGE, UNSPECIFIED Status: Acute Qualifiers: Intracerebral hemorrhage etiology: nontraumatic Cerebral hemorrhage location: cerebral hemisphere, cortical portion Laterality: right Qualified Code(s): I61.1 - Nontraumatic intracerebral hemorrhage in hemisphere, cortical Comment: NS offered decompressive SX but family refused. Discussed w at bedside (2) Acute encephalopathy Code(s): G93.40 - ENCEPHALOPATHY, UNSPECIFIED Status: Acute Comment: due to #1 (3) Uncontrolled hypertension Code(s): I10 - ESSENTIAL (PRIMARY) HYPERTENSION Status: Acute Comment: improving.Titrated Nicardipine drip off.Continue Amlodipine and Coreg (4) Cerebral amyloid angiopathy Code(s): E85.4 - ORGAN-LIMITED AMYLOIDOSIS; I68.0 - CEREBRAL AMYLOID ANGIOPATHY Status: Chronic (5) H/O: CVA (cerebrovascular accident) Code(s): Z86.73 - PRSNL HX OF TIA (TIA), AND CEREB INFRC W/O RESID DEFICITS Status: Chronic - Plan plan discussed w/ family, PT/OT, DVT proph w/SCDs supportive care.Tube feeds. may need PEG -: cont OT,PT,CAR SHUNTER -: HD stable.High risk of decompensation if ICH worsen -: cont pepcid BID. stop ABx as no clear indication & diarrhea now -: poor prognosis.check labs in am.check Cdiff * . Review of Systems - Review of Systems Other: unable to obtain due to some AMS and aphasia from ICH - Medications/Allergies Allergies/Adverse Reactions: Allergies Allergy/AdvReac Type Severity Reaction Status Date / Time No Known Allergies Allergy Verified 07/31/18 04:41 Medications: Current Medications Acetaminophen (Tylenol) 650 mg PO Q6H PRN PRN Reason: Fever > 101 or Headache Last Admin: 08/03/18 19:47 Dose: 650 mg Al Hydroxide/Mg Hydroxide (Maalox) 30 ml PO QIDPRN PRN PRN Reason: Dyspepsia Amlodipine Besylate (Norvasc) 10 mg PER TUBE 1200 GOVIND Last Admin: 08/04/18 12:04 Dose: 10 mg Bisacodyl (Dulcolax) 10 mg NE DAILYPRN PRN PRN Reason: Constipation Carvedilol (Coreg) 6.25 mg PO BID-[facility] GOVIND Last Admin: 08/04/18 07:58 Dose: 6.25 mg Clonidine (Catapres) 0.1 mg PO Q4H PRN PRN Reason: SBP>160 Docusate Sodium (Colace) 100 mg PO BIDPRN PRN PRN Reason: Constipation Famotidine (Pepcid) 20 mg SLOW IVP Q12HR G[facility]IND Last Admin: 08/04/18 08:00 Dose: 20 mg Hydralazine HCl (Apresoline) 10 mg SLOW IVP Q4H PRN PRN Reason: SBP>170 Last Admin: 08/04/18 05:10 Dose: 10 mg Magnesium Hydroxide (Milk Of Magnesium) 30 ml PO BIDPRN PRN PRN Reason: Constipation Memantine (Namenda) 10 mg PO DAILY [facility] Last Admin: 08/04/18 12:04 Dose: 10 mg Ondansetron HCl (Zofran) 4 mg IVP BIDPRN PRN PRN Reason: Nausea/Vomiting Sodium Chloride (Flush - Normal Saline) 10 ml IVF Q12HR [facility] Last Admin: 08/04/18 08:00 Dose: 10 ml Sodium Chloride (Flush - Normal Saline) 10 ml IVF PRN PRN PRN Reason: Saline Flush
[2018-08-04] MEDS ORDERED: traZODone HCl 50 MG TAB PO PRN (18:07)
--- NOTE | 2018-08-04 19:17 | RAD ---
AP VIEW ABDOMEN: 08/04/18 HISTORY: NG tube placement. AP view abdomen demonstrates placement of an NG tube. Distal tip is overlying the gastric antrum. The abdominal gas patter is nonspecific. No evidence of obstruction or ileus seen. IMPRESSION: NG tube in good position. POS: [facility]
[2018-08-05 04:09] LABS: #Eosinphils 0.1 thou/uL (0.0-0.7); #Lymphocytes 1.5 thou/uL (1.20-3.40); #Neutrophils 7.1 thou/uL (1.40-6.50); %Basophils 0.3 % (0.0-1.0); %Eosinophils 0.9 % (0.0-10.0); %Lymphocytes 15.2 % (21.0-51.0); %Monocytes 10.3 % (0.0-10.0); %Neutrophils 73.2 % (42.0-75.0); Hemoglobin 12.2 g/dL (12.0-16.0); Mean Corpuscular HGB CONC 34.9 g/dL (32.0-36.0); Mean Corpuscular Hemoglobin 32.9 pg (27.0-31.0); Mean Corpuscular Volume 94.2 fL (78.0-98.0); Mean Platelet Volume 7.8 fL (7.4-10.4); Platelet Count 281 thou/uL (130-400); RBC Distribution Width 11.8 % (11.5-14.5); White Blood Cell (WBC) Count 9.7 thou/uL (4.8-10.8)
[2018-08-05 05:39] LABS: Anion Gap 14 mmol/L (10-20); BUN (Urea Nitrogen) 23 mg/dL (9.8-20.1); Calc. Creatinine Clearance 75 mL/min (70-130); Calcium 8.9 mg/dL (7.8-10.44); Carbon Dioxide 22 mmol/L (23-31); Chloride 105 mmol/L (98-107); Estimated GFR-MDRD 76; Glucose 121 mg/dL (83-110); Potassium 3.9 mmol/L (3.5-5.1); Sodium 137 mmol/L (136-145)
[2018-08-05] MEDS: Famotidine/PF 20 mg/2ml Vial SLOW IVP SCH ×2 (08:44→21:14)
[2018-08-05] MEDS: Carvedilol 6.25 MG TAB PO SCH ×2 (08:45→16:40)
--- NOTE | 2018-08-05 10:20 | PRG ---
DATE OF SERVICE: 08/05/2018 SERVICE: Pulmonary Medicine. INTERVAL HISTORY: The patient is doing outstanding from a Respiratory standpoint. She remains on room air. She cannot really register any complaints because she is aphasic. That being said, she continues to follow some simple commands with the right side of her body. There have been no interval events overnight. PHYSICAL EXAMINATION: VITAL SIGNS: Afebrile, pulse 60, blood pressure 132/69, respirations 15, and saturation is 98% on room air. GENERAL: The patient is awake and alert, in no apparent distress. LUNGS: Excellent air entry. More rhonchi are present today. No prolonged expiratory phase or wheezing appreciated. HEART: Normal rate and regular. ABDOMEN: Soft, nontender, and nondistended. Bowel sounds are positive. MUSCULOSKELETAL: No cyanosis or clubbing. No pitting in the bilateral lower extremities. NEUROLOGIC: She has a dense left-sided hemiplegia. She has weakness on the right, but she can follow some simple commands by putting her thumb up on the right hand and wiggling her toes to command. She cannot speak. Her pupils are equal, round, and reactive. She has a rightward gaze preference. All being said, this is stable neurologic exam over the weekend. LABORATORY DATA: WBC 9.7, hemoglobin 12.2, and platelets 281,000. INR 1.1. Basic metabolic profile is completely unremarkable with a sodium of 137. Clostridium difficile antigen and toxin are unremarkable. ASSESSMENT: 1. Intraparenchymal hemorrhage. 2. Hypertension. DISCUSSION AND PLAN: The patient is stable for transition out of the ICU to the Stroke Unit. Pulmonary/Critical Care will continue to follow along for the time being. She is at very high risk for developing respiratory infections given the fact that she can protect her airway, but poorly. She is tolerating tube feeds. Within the next 24 to 48 hours if aggressive measures are going to be pursued, PEG tube should be considered as I do not see this patient coming around to the point where she can swallow in a short period of time. Job ID: [id number]
[2018-08-05] MEDS: Amlodipine 10 MG TAB PER TUBE SCH (12:33)
--- NOTE | 2018-08-05 14:13 | PDOC.PN ---
- Subjective Encounter Start Date: 08/05/18 Encounter Start Time: 14:11 Subjective: no new events. pulled out NGT last evening-replaced -: care discussed w .reports some movement of left leg/foot - Objective MAR Reviewed: Yes Vital Signs & Weight: Vital Signs (12 hours) Temp BP Pulse Ox 08/05/18 12:33 123/55 L 08/05/18 11:16 98.3 F 08/05/18 08:45 138/65 08/05/18 08:00 98 08/05/18 07:00 98.6 F 08/05/18 04:00 98.9 F Weight Admit Weight 161 lb Weight 162 lb 3.2 oz Most Recent Monitor Data Heart Rate from ECG 60 NIBP 146/69 NIBP BP-Mean 94 Respiration from ECG 16 SpO2 98 I&O: 08/04/18 08/05/18 08/06/18 06:59 06:59 06:59 Intake Total 1843 1540 30 Output Total 2130 1670 Balance -287 -130 30 Result Diagrams: 08/05/18 04:00 08/05/18 04:00 Additional Labs: Microbiology 08/04/18 18:30 Stool C. difficile GDH Antigen & Toxins - Final Phys Exam - Physical Examination Constitutional: NAD sitting up in neuro chair.awake & alert HEENT: PERRLA, moist MMs, sclera anicteric, oral pharynx no lesions dobhoff in place Neck: no nodes, no JVD, supple, full ROM Respiratory: no wheezing, no rales, no rhonchi, clear to auscultation bilateral Cardiovascular: RRR, no significant murmur Gastrointestinal: soft, non-tender, no distention, positive bowel sounds Musculoskeletal: no edema, pulses present left hemiparesis.aphasia,left neglect,facial droop follows simple commands on R hand squeeze.able to withdraw to touch L foot Psychiatric: normal affect Dx/Plan (1) ICH (intracerebral hemorrhage) Code(s): I61.9 - NONTRAUMATIC INTRACEREBRAL HEMORRHAGE, UNSPECIFIED Status: Acute Qualifiers: Intracerebral hemorrhage etiology: nontraumatic Cerebral hemorrhage location: cerebral hemisphere, cortical portion Laterality: right Qualified Code(s): I61.1 - Nontraumatic intracerebral hemorrhage in hemisphere, cortical Comment: NS offered decompressive SX but family refused. Discussed w at bedside continue conservative management.OT/PT/CLAY PIGEON LOADER (2) Acute encephalopathy Code(s): G93.40 - ENCEPHALOPATHY, UNSPECIFIED Status: Acute Comment: due to #1 improving (3) Uncontrolled hypertension Code(s): I10 - ESSENTIAL (PRIMARY) HYPERTENSION Status: Acute Comment: improving.Titrated Nicardipine drip off.Continue Amlodipine and Coreg (4) Cerebral amyloid angiopathy Code(s): E85.4 - ORGAN-LIMITED AMYLOIDOSIS; I68.0 - CEREBRAL AMYLOID ANGIOPATHY Status: Chronic (5) H/O: CVA (cerebrovascular accident) Code(s): Z86.73 - PRSNL HX OF TIA (TIA), AND CEREB INFRC W/O RESID DEFICITS Status: Chronic - Plan plan discussed w/ family, PT/OT, respiratory therapy, DVT proph w/SCDs Will most likely need PEG and placement. johns snot seem to understand -: the prognosis .He expects that she will be able to eat soon. -: He may consider placement locally if required . -: cont supportive care at this point.NS requested to come talk to family -: regarding prognosis to help plan the course of care.awaiting recs.HD stable * . Review of Systems - Review of Systems Other: can not be obtained due to aphasia - Medications/Allergies Allergies/Adverse Reactions: Allergies Allergy/AdvReac Type Severity Reaction Status Date / Time No Known Allergies Allergy Verified 07/31/18 04:41 Medications: Current Medications Acetaminophen (Tylenol) 650 mg PO Q6H PRN PRN Reason: Fever > 101 or Headache Last Admin: 08/03/18 19:47 Dose: 650 mg Al Hydroxide/Mg Hydroxide (Maalox) 30 ml PO QIDPRN PRN PRN Reason: Dyspepsia Amlodipine Besylate (Norvasc) 10 mg PER TUBE 1200 GOVIND Last Admin: 08/05/18 12:33 Dose: 10 mg Bisacodyl (Dulcolax) 10 mg AL DAILYPRN PRN PRN Reason: Constipation Carvedilol (Coreg) 6.25 mg PO BID-WM GOVIND Last Admin: 08/05/18 08:45 Dose: 6.25 mg Clonidine (Catapres) 0.1 mg PO Q4H PRN PRN Reason: SBP>160 Docusate Sodium (Colace) 100 mg PO BIDPRN PRN PRN Reason: Constipation Famotidine (Pepcid) 20 mg SLOW IVP Q12HR [facility] Last Admin: 08/05/18 08:44 Dose: 20 mg Hydralazine HCl (Apresoline) 10 mg SLOW IVP Q4H PRN PRN Reason: SBP>170 Last Admin: 08/04/18 05:10 Dose: 10 mg Magnesium Hydroxide (Milk Of Magnesium) 30 ml PO BIDPRN PRN PRN Reason: Constipation Memantine (Namenda) 10 mg PO DAILY [facility] Last Admin: 08/05/18 08:46 Dose: 10 mg Ondansetron HCl (Zofran) 4 mg IVP BIDPRN PRN PRN Reason: Nausea/Vomiting Sodium Chloride (Flush - Normal Saline) 10 ml IVF Q12HR [facility] Last Admin: 08/05/18 08:46 Dose: 10 ml Sodium Chloride (Flush - Normal Saline) 10 ml IVF PRN PRN PRN Reason: Saline Flush Trazodone HCl (Desyrel) 50 mg PO HS PRN PRN Reason: Insomnia Last Admin: 08/04/18 21:35 Dose: 50 mg
--- NOTE | 2018-08-06 09:58 | PRG ---
DATE OF SERVICE: 08/06/2018 SERVICE: Pulmonary Medicine. INTERVAL HISTORY: She is doing well from mentation standpoint. She is actually speaking in a couple of words today. She cannot provide any additional elements of the history because of her severe neurologic injury. Otherwise, things are fairly stable, and nursing reports noted no events overnight. PHYSICAL EXAMINATION: VITAL SIGNS: Afebrile, pulse 63, blood pressure 137/72, respirations 18, and saturation 96% on room air. GENERAL: The patient is awake and alert this morning. She has a rightward gaze preference and is following commands in the right upper and lower extremity. She is in no apparent distress. LUNGS: Excellent air entry today. Rhonchi have improved. No prolonged expiratory phase or wheezing is appreciated. HEART: Normal rate and regular. ABDOMEN: Soft, nontender, nondistended. Bowel sounds are positive. MUSCULOSKELETAL: No cyanosis or clubbing. No pitting in the bilateral lower extremities. NEUROLOGIC: Grossly nonfocal. LABORATORY DATA: WBC 9.7, hemoglobin 12.2, platelets 281,000. INR 1.1. ASSESSMENT: 1. Intracerebral hemorrhage with significant debility. 2. Hypertension. DISCUSSION AND PLAN: The likelihood is that the patient's swallow is going to make a meaningful recovery over the next couple of weeks is fairly low. If anything , it will take several months if not longer. I think at this point, we have seen enough to pursue PEG tube. GI consultation will be placed. She will remain stable for transition out of the [facility] to the stroke unit. Once that occurs, she will have no further requirements for inpatient Pulmonary or Critical Care opinion, and I will only follow intermittently. I will continue to follow in this location. Job ID: [id number] MTDD
[2018-08-06] MEDS: Famotidine/PF 20 mg/2ml Vial SLOW IVP SCH ×2 (10:07→19:54)
[2018-08-06] MEDS: Carvedilol 6.25 MG TAB PO SCH ×2 (10:07→16:38)
[2018-08-06] MEDS: Acetaminophen 325 MG TAB PO PRN (13:02)
[2018-08-06] MEDS: Amlodipine 10 MG TAB PER TUBE SCH (13:03)
--- NOTE | 2018-08-06 17:04 | PDOC.PN ---
- Subjective Encounter Start Date: 08/06/18 Encounter Start Time: 16:45 Subjective: f/u for ICH with dysphagia, dysphasia and L hemiparesis. Planning on PEG -: tube due to poor oral intake and dysphagia. No new events currently. - Objective MAR Reviewed: Yes Vital Signs & Weight: Vital Signs (12 hours) Temp Pulse Pulse Pulse BP BP BP 08/06/18 16:38 122/63 08/06/18 16:00 99.5 F 08/06/18 13:03 58 L 145/73 H 08/06/18 13:00 99.7 F H 08/06/18 10:07 125/67 08/06/18 09:23 67 63 139/70 130/68 08/06/18 08:03 98.8 F 08/06/18 08:00 Pulse Ox Pulse Ox Pulse Ox 08/06/18 16:38 08/06/18 16:00 08/06/18 13:03 08/06/18 13:00 08/06/18 10:07 08/06/18 09:23 96 97 08/06/18 08:03 08/06/18 08:00 97 Weight Admit Weight 161 lb Weight 163 lb 11.2 oz Most Recent Monitor Data Heart Rate from ECG 54 NIBP 119/64 NIBP BP-Mean 82 Respiration from ECG 14 SpO2 94 I&O: 08/05/18 08/06/18 08/07/18 06:59 06:59 06:59 Intake Total 1540 930 30 Output Total 1670 1050 Balance -130 -120 30 Result Diagrams: 08/05/18 04:00 08/05/18 04:00 Additional Labs: Microbiology 08/04/18 18:30 Stool C. difficile GDH Antigen & Toxins - Final Laboratory Tests 08/01/18 08/02/18 08/03/18 06:55 08:25 05:40 WBC 11.6 H Hgb 11.0 L Potassium 3.4 L 3.7 08/04/18 08:26 WBC Hgb Potassium 4.0 EKG Reviewed by me: Yes (Tele - SR) Phys Exam - Physical Examination somnolent, minimal response to name HEENT: PERRLA, sclera anicteric, oral pharynx no lesions Neck: no nodes, no JVD, supple, full ROM Respiratory: no wheezing, no rales, no rhonchi, clear to auscultation bilateral S1, S2 Cardiovascular: RRR, no significant murmur, no rub, gallop Gastrointestinal: soft, non-tender, no distention, positive bowel sounds Musculoskeletal: no edema, pulses present L hemiparesis, dysarthria, dysphagia Skin: normal turgor, cap refill <2 seconds Dx/Plan (1) Dysphagia Code(s): R13.10 - DYSPHAGIA, UNSPECIFIED Status: Acute Qualifiers: Dysphagia type: oropharyngeal phase Qualified Code(s): R13.12 - Dysphagia, oropharyngeal phase Comment: Plan for PEG tube placement for nutritional supplementation assisted (2) ICH (intracerebral hemorrhage) Code(s): I61.9 - NONTRAUMATIC INTRACEREBRAL HEMORRHAGE, UNSPECIFIED Status: Acute Qualifiers: Intracerebral hemorrhage etiology: nontraumatic Cerebral hemorrhage location: cerebral hemisphere, cortical portion Laterality: right Qualified Code(s): I61.1 - Nontraumatic intracerebral hemorrhage in hemisphere, cortical Comment: NS offered decompressive SX but family refused. Discussed w at bedside continue conservative management.OT/PT/REGULATOR TESTER (3) Left hemiparesis Code(s): G81.94 - HEMIPLEGIA, UNSPECIFIED AFFECTING LEFT NONDOMINANT SIDE Status: Acute Comment: PT/OT for mobilization and ROM exercises (4) Cerebral amyloid angiopathy Code(s): E85.4 - ORGAN-LIMITED AMYLOIDOSIS; I68.0 - CEREBRAL AMYLOID ANGIOPATHY Status: Chronic - Plan PT/OT, social professionals, speech therapy, DVT proph w/SCDs Stable currently -: Plan for PEG tube placement -: Nutritional support -: PT/OT for mobilization -: SNF/NH options * .
--- NOTE | 2018-08-07 02:42 | CON ---
DATE OF CONSULTATION: 08/06/2018 CHIEF COMPLAINT: Trouble swallowing. HISTORY OF PRESENT ILLNESS: Ms. Vaelntin is a 72-year-old woman who was admitted with a hemorrhagic stroke on 07/30/2018. She had a large right frontal intraparenchymal acute hematoma with adjacent subarachnoid hemorrhage and cerebral edema. She has had associated dysphagia and aphasia and left hemiparesis. GI was consulted for PEG tube placement. She is not verbally interactive in discussion with her this evening. PAST MEDICAL HISTORY: She had a prior hemorrhagic stroke a couple of years ago. She has a history of dementia. She has had no prior surgeries on her abdomen. FAMILY HISTORY: No known GI malignancies. SOCIAL HISTORY: No alcohol, tobacco, or drugs. ALLERGIES: NO KNOWN DRUG ALLERGIES. MEDICATIONS: Current inpatient medications include; 1. Trazodone. 2. Memantine. 3. Hydralazine. 4. Famotidine. 5. Carvedilol. 6. Amlodipine. REVIEW OF SYSTEMS: Unobtainable due to her aphasia. PHYSICAL EXAMINATION: VITAL SIGNS: Temperature 100, pulse 58, blood pressure 129/65. GENERAL: She is in no acute distress. She has an NG tube in place. HEENT: Eyes have no scleral icterus. Oropharynx is clear without lesions. She has no cervical or supraclavicular lymphadenopathy. LUNGS: Clear to auscultation bilaterally. HEART: Regular rate and rhythm without murmur. ABDOMEN: Soft, nontender, and nondistended. Bowel sounds are present. She is tolerating her feeds so far through the NG tube. EXTREMITIES: No lower extremity edema. LABORATORY DATA: White blood cell count 9.7, hemoglobin 12.2, platelets 281. INR 1.1. Creatinine 0.75. IMPRESSION: 1. Hemorrhagic stroke with resulting dysphagia and aphasia. 2. I discussed the risks and benefits of percutaneous endoscopic gastrostomy tube and the details of the procedure with the patient's . He wishes to proceed with a PEG tube placement. RECOMMENDATIONS: 1. EGD, PEG. 2. Preprocedure antibiotics. Job ID: [id number]
[2018-08-07] MEDS: Acetaminophen 325 MG TAB PO PRN (05:19)
--- NOTE | 2018-08-07 07:41 | RAD ---
Chest one view HISTORY: Fever. FINDINGS: No comparison. Cardiac silhouette is magnified by projection. Pulmonary vasculature is unre markable. Mediastinum is midline. Nasogastric descends into the abdomen. No lobar consolidation or evidence of pneumothorax. computer artist leads overlie the chest. IMPRESSION: No active cardiopulmonary abnormalities are demonstrated.
[2018-08-07 08:19] LABS: Bilirubin Negative (Negative); Blood, Urine Moderate (Negative); Clarity CLOUDY (Clear); Glucose, Urine (Dipstick) Negative (Negative); Leukocyte Small (Negative); Nitrite Negative (Negative); Protein, Urine (Dipstick) Trace mg/dL (Neg-Trace); Specific Gravity, Urine 1.029 (1.002-1.036); Urobilinogen 0.2 mg/dL (0.2-1.0)
[2018-08-07 08:23] LABS: WBC/HPF 21-50 HPF (0-3)
[2018-08-07 08:35] LABS: Pathc Cast-AUWi Flag 4.35 (0-2.49)
[2018-08-07 08:43] LABS: Bacteria/HPF Rare-Few HPF (None Seen)
[2018-08-07 08:45] LABS: Other Casts/LPF None Seen LPF (0-3 Hyaline); Urine Culture Reflex No No
[2018-08-07] MEDS: Carvedilol 6.25 MG TAB PO SCH ×2 (13:26→20:43)
[2018-08-07] MEDS: Famotidine/PF 20 mg/2ml Vial SLOW IVP SCH ×2 (13:28→21:59)
[2018-08-07] MEDS ORDERED: Acetaminophen 650 MG Suppository PR PRN (14:21)
--- NOTE | 2018-08-07 14:24 | PDOC.PN ---
- Subjective Encounter Start Date: 08/07/18 Encounter Start Time: 14:20 Subjective: f/u ICH with dysphagia, aphasic with L hemiparesis pending PEG tube -: placement. Nursing reports fever overnight and apparently pulled out -: NGT. - Objective MAR Reviewed: Yes Vital Signs & Weight: Vital Signs (12 hours) Temp Pulse Pulse Pulse Resp BP BP 08/07/18 09:48 67 67 151/67 H 136/74 08/07/18 08:00 100.1 F H 63 16 08/07/18 04:00 101.9 F H 70 16 BP Pulse Ox 08/07/18 09:48 08/07/18 08:00 121/62 93 L 08/07/18 04:00 130/67 96 Weight Admit Weight 161 lb Weight 159 lb 6.4 oz Most Recent Monitor Data Heart Rate from ECG 62 NIBP 103/71 NIBP BP-Mean 81 Respiration from ECG 19 SpO2 97 I&O: 08/06/18 08/07/18 08/08/18 06:59 06:59 06:59 Intake Total 930 90 Output Total 1050 750 30 Balance -120 -660 -30 Result Diagrams: 08/05/18 04:00 08/05/18 04:00 Additional Labs: Microbiology 08/04/18 18:30 Stool C. difficile GDH Antigen & Toxins - Final Laboratory Tests 08/01/18 08/02/18 08/03/18 06:55 08:25 05:40 WBC 11.6 H Hgb 11.0 L Potassium 3.4 L 3.7 08/04/18 08:26 WBC Hgb Potassium 4.0 Radiology Reviewed by me: Yes (PCXR - no acute infiltrate) EKG Reviewed by me: Yes (Tele - SR) Phys Exam - Physical Examination opens eyes, nods, mumbles HEENT: PERRLA, sclera anicteric, oral pharynx no lesions Neck: no nodes, no JVD, supple, full ROM Respiratory: no wheezing, no rales, no rhonchi, clear to auscultation bilateral S1, S2 Cardiovascular: RRR, no significant murmur, no rub, gallop Gastrointestinal: soft, non-tender, no distention, positive bowel sounds Musculoskeletal: no edema, pulses present L hemiparesis, dysphagia, aphasic Neurological: normal sensation Skin: normal turgor, cap refill <2 seconds Dx/Plan (1) Dysphagia Code(s): R13.10 - DYSPHAGIA, UNSPECIFIED Status: Acute Qualifiers: Dysphagia type: oropharyngeal phase Qualified Code(s): R13.12 - Dysphagia, oropharyngeal phase Comment: Plan for PEG tube placement for nutritional supplementation extermination supervisor (2) ICH (intracerebral hemorrhage) Code(s): I61.9 - NONTRAUMATIC INTRACEREBRAL HEMORRHAGE, UNSPECIFIED Status: Acute Qualifiers: Intracerebral hemorrhage etiology: nontraumatic Cerebral hemorrhage location: cerebral hemisphere, cortical portion Laterality: right Qualified Code(s): I61.1 - Nontraumatic intracerebral hemorrhage in hemisphere, cortical Comment: NS offered decompressive SX but family refused. Discussed w at bedside continue conservative management.OT/PT/SALES SERVICE TECHNICIAN (3) Left hemiparesis Code(s): G81.94 - HEMIPLEGIA, UNSPECIFIED AFFECTING LEFT NONDOMINANT SIDE Status: Acute Comment: PT/OT for mobilization and ROM exercises (4) UTI (urinary tract infection) Status: Acute Qualifiers: Urinary tract infection type: acute cystitis Comment: Suspected, start Rocephin 2gm IV daily, await final Ucx results (5) Cerebral amyloid angiopathy Code(s): E85.4 - ORGAN-LIMITED AMYLOIDOSIS; I68.0 - CEREBRAL AMYLOID ANGIOPATHY Status: Chronic - Plan plan discussed w/ family, continue antibiotics, PT/OT, psychosocial rehabilitation counselor, speech therapy, out of bed/ambulate, DVT proph w/SCDs Stable currently -: PEG tube placement pending -: Start Rocephin 2gm IV -: Acetaminophen 650mg MA q6h prn -: AM lab: BMP, CBC * .
[2018-08-07] MEDS ORDERED: Acetaminophen 650 MG Suppository PR SCH (14:30)
[2018-08-07] MEDS: Amlodipine 10 MG TAB PER TUBE SCH (15:55)
--- NOTE | 2018-08-07 16:46 | PRG ---
DATE OF SERVICE: 08/07/2018 SUBJECTIVE: Ms. Valentin was tolerating her feeds well, but she did pull out her NG tube today. PEG tube is delayed today as the feeds were nonstop. OBJECTIVE: VITAL SIGNS: Temperature 99.1, pulse 75, and blood pressure 131/88. LUNGS: Have some expiratory wheezes. HEART: Showed regular rate and rhythm without murmur. ABDOMEN: Soft, nontender, and nondistended. Bowel sounds are present. EXTREMITIES: No lower extremity edema. Please note, her maximum temperature was 101.9 this morning. IMPRESSION: 1. Oropharyngeal dysphagia secondary to stroke. 2. Fever this morning is believed to be related to central process from the hemorrhagic stroke. Chest x-ray this morning did not show an obvious infiltrate. Her white blood cell count has returned to normal. RECOMMENDATIONS: 1. EGD with PEG tube tomorrow. 2. Preprocedure antibiotics. Job ID: [id number]
[2018-08-07] MEDS: cefTRIAXone\\ROCEPHIN 2 GM in Sodium Chloride 0.9% 100 ML IVPB SCH (20:43)
--- NOTE | 2018-08-08 04:51 | PDOC.EVN ---
Event Note - Event Note Event Note: pt has had repeat bleeding possibly uterine origin, rectal was negative for blood, will do transvaginal US r/o DRYWALL TAPER HELPER pathology
[2018-08-08 05:11] LABS: Band 6 % (5-11); Hemoglobin 14.8 g/dL (12.0-16.0); Lymphocytes 6 % (21-51); MDiff Complete? YES; Mean Corpuscular HGB CONC 33.3 g/dL (32.0-36.0); Mean Corpuscular Hemoglobin 31.7 pg (27.0-31.0); Mean Corpuscular Volume 95.3 fL (78.0-98.0); Mean Platelet Volume 8.3 fL (7.4-10.4); Monocytes 8 % (0-10); Neutrophil 80 % (42-75); Platelet Count 374 thou/uL (130-400); Platelet Morphology Comment Appears Adequate; RBC Distribution Width 11.8 % (11.5-14.5); RBC Morphology Normal; Red Blood Cell (RBC) Count 4.66 mill/uL (4.20-5.40); White Blood Cell (WBC) Count 20.8 thou/uL (4.8-10.8)
[2018-08-08 05:19] LABS: Anion Gap 15 mmol/L (10-20); BUN (Urea Nitrogen) 37 mg/dL (9.8-20.1); Calc. Creatinine Clearance 75 mL/min (70-130); Calcium 9.1 mg/dL (7.8-10.44); Carbon Dioxide 20 mmol/L (23-31); Chloride 108 mmol/L (98-107); Estimated GFR-MDRD 76; Glucose 133 mg/dL (83-110); Potassium 4.1 mmol/L (3.5-5.1); Sodium 139 mmol/L (136-145)
[2018-08-08] MEDS ORDERED: Promethazine HCl 25 MG/ML VIAL SLOW IVP PRN (11:13)
[2018-08-08] MEDS ORDERED: Ondansetron HCl/PF 4 MG/2 ML Vial IVP PRN (11:13)
[2018-08-08] MEDS ORDERED: Promethazine HCl 25 MG/ML VIAL IM PRN (11:13)
[2018-08-08] MEDS: Amlodipine 10 MG TAB PER TUBE SCH (12:23)
[2018-08-08] MEDS: Carvedilol 6.25 MG TAB PO SCH ×2 (12:23→17:56)
[2018-08-08] MEDS: Famotidine/PF 20 mg/2ml Vial SLOW IVP SCH ×2 (12:24→22:31)
[2018-08-08] MEDS ORDERED: PROPOFOL 200 MG/20 ML VIAL ONE (13:32)
[2018-08-08] MEDS ORDERED: Lidocaine 1% PF 5 ML VIAL ONE (13:32)
--- NOTE | 2018-08-08 14:51 | ULT ---
Transabdominal pelvic ultrasound INDICATION: Vaginal bleeding TECHNIQUE: Grayscale and color Doppler images were obtained of the pelvis via transabdominal approach . FINDINGS: The uterus measures 5.9 x 2.0 x 4.2 cm. The endometrial stripe could not be visualized. The prevoid bladder volume was 32.7 cc. The adnexa were not seen. No free fluid is identified. IMPRESSION: Limited pelvic ultrasound. The visualized uterus was normal appearing. Adnexa were not we ll seen. No free fluid is identified. The bladder is partially decompressed.
[2018-08-08] MEDS: cefTRIAXone\\ROCEPHIN 2 GM in Sodium Chloride 0.9% 100 ML IVPB SCH (15:10)
--- NOTE | 2018-08-08 16:22 | PDOC.PN ---
- Subjective Encounter Start Date: 08/08/18 Encounter Start Time: 16:20 Subjective: f/u ICH with dysphagia, aphasia and L hemiparesis s/p PEG tube -: placement 08/08/18. Continues on Rocephin for suspected UTI. -: Nsg noted vaginal discharge overnight. - Objective MAR Reviewed: Yes Vital Signs & Weight: Vital Signs (12 hours) Temp Pulse Resp BP BP Pulse Ox 08/08/18 13:27 71 131/88 08/08/18 12:23 77 174/90 H 08/08/18 07:56 99.2 F 76 22 H 133/96 H 95 Weight Admit Weight 161 lb Weight 155 lb 1.6 oz Most Recent Monitor Data Heart Rate from ECG 62 NIBP 103/71 NIBP BP-Mean 81 Respiration from ECG 19 SpO2 97 I&O: 08/07/18 08/08/18 08/09/18 06:59 06:59 06:59 Intake Total 90 Output Total 750 30 Balance -660 -30 Result Diagrams: 08/08/18 04:34 08/08/18 04:34 Additional Labs: Microbiology 08/04/18 18:30 Stool C. difficile GDH Antigen & Toxins - Final 08/07/18 07:14 Venous blood - Left Hand Blood Culture - Preliminary Specimen has been received and culture in progress. No Growth to date. 08/07/18 07:11 Venous blood - Right Hand Blood Culture - Preliminary Specimen has been received and culture in progress. No Growth to date. Laboratory Tests 08/01/18 08/02/18 08/03/18 06:55 08:25 05:40 WBC 11.6 H Hgb 11.0 L Neutrophils % Neutrophils % (Manual) Potassium 3.4 L 3.7 08/04/18 08/05/18 08/08/18 08:26 04:00 04:34 WBC 9.7 Hgb Neutrophils % 73.2 Neutrophils % (Manual) 80 H Potassium 4.0 Radiology Reviewed by me: Yes (Pelvic sono - neg) EKG Reviewed by me: Yes (Tele - SR) Phys Exam - Physical Examination Constitutional: NAD HEENT: PERRLA, sclera anicteric, oral pharynx no lesions Neck: no nodes, no JVD, supple, full ROM Respiratory: no wheezing, no rales, no rhonchi, clear to auscultation bilateral S1, S2 Cardiovascular: RRR, no significant murmur, no rub, gallop PEG tube in place Gastrointestinal: soft, non-tender, no distention, positive bowel sounds Musculoskeletal: no edema, pulses present L hemiparesis, dysphagia, aphasic Skin: normal turgor, cap refill <2 seconds Dx/Plan (1) Dysphagia Code(s): R13.10 - DYSPHAGIA, UNSPECIFIED Status: Acute Qualifiers: Dysphagia type: oropharyngeal phase Qualified Code(s): R13.12 - Dysphagia, oropharyngeal phase Comment: PEG tube placed today, plan to start TF's this pm (2) ICH (intracerebral hemorrhage) Code(s): I61.9 - NONTRAUMATIC INTRACEREBRAL HEMORRHAGE, UNSPECIFIED Status: Acute Qualifiers: Intracerebral hemorrhage etiology: nontraumatic Cerebral hemorrhage location: cerebral hemisphere, cortical portion Laterality: right Qualified Code(s): I61.1 - Nontraumatic intracerebral hemorrhage in hemisphere, cortical Comment: NS offered decompressive SX but family refused. Discussed w at bedside continue conservative management.OT/PT/MACHINE SETUP OPERATOR, Rehab screening (3) Left hemiparesis Code(s): G81.94 - HEMIPLEGIA, UNSPECIFIED AFFECTING LEFT NONDOMINANT SIDE Status: Acute Comment: PT/OT for mobilization and ROM exercises (4) UTI (urinary tract infection) Status: Acute Qualifiers: Urinary tract infection type: acute cystitis Comment: Suspected, start Rocephin 2gm IV daily, await final Ucx results (5) Cerebral amyloid angiopathy Code(s): E85.4 - ORGAN-LIMITED AMYLOIDOSIS; I68.0 - CEREBRAL AMYLOID ANGIOPATHY Status: Chronic - Plan plan discussed w/ family, continue antibiotics, PT/OT, pediatric social worker, speech therapy, DVT proph w/SCDs Stable currently -: Continue Rocephin 2gm IV daily -: Start TF's this pm with goal rate 60ml/h -: Rehab screening -: AM lab: CBC * Nystatin crm BID
[2018-08-08] MEDS: Nystatin Cream 30 GM TUBE TOP SCH ×2 (17:56→22:03)
--- NOTE | 2018-08-08 18:16 | OP ---
DATE OF PROCEDURE: 08/08/2018 PROCEDURE PERFORMED: Esophagogastroduodenoscopy with percutaneous endoscopic gastrostomy tube placement. PREOPERATIVE DIAGNOSIS: Oropharyngeal dysphagia secondary to stroke. DESCRIPTION OF PROCEDURE: Informed consent was obtained. The patient was sedated with total intravenous anesthesia. The bite block was placed, and the endoscope was advanced easily to the second portion of the duodenum, and retroflexion was performed in the stomach. The esophagus was normal. The stomach was normal including retroflexed views. The pylorus and first and second portions of the duodenum were normal. The stomach was fully insufflated, and the appropriate site was palpated in the left upper quadrant below the left ribs. Good one-to-one palpation was identified. Transillumination confirmed good placement. The skin was sterilized with chlorhexidine. Please note, the patient did receive preprocedure antibiotics. The skin was anesthetized with 5 mL of 1% lidocaine. The 20-gauge needle used for the local anesthetic showed the tract to be appropriate with direct visualization by the endoscope as well. A small skin incision was performed. The catheter was then placed through the abdominal wall into the stomach under direct visualization easily in one attempt through the incision. The guidewire was placed through the catheter and grasped with a snare and pulled out through the patient's mouth. The 20-Lao gastrostomy tube was then placed by the pull-through technique. The external bumper was placed at 4 cm. Second-look endoscopy showed the internal bumper to be in good position. IMPRESSION: 1. Normal esophagogastroduodenoscopy. 2. Successful placement of 20-Lao gastrostomy tube with a rubber internal bumper and the external bumper placed at 4 cm. RECOMMENDATIONS: Start feeds in 12 hours. Job ID: [id number]
[2018-08-09 06:14] LABS: Band 3 % (5-11); Hemoglobin 14.4 g/dL (12.0-16.0); Lymphocytes 15 % (21-51); MDiff Complete? YES; Mean Corpuscular HGB CONC 32.3 g/dL (32.0-36.0); Mean Corpuscular Hemoglobin 31.2 pg (27.0-31.0); Mean Corpuscular Volume 96.8 fL (78.0-98.0); Mean Platelet Volume 8.7 fL (7.4-10.4); Monocytes 6 % (0-10); Neutrophil 75 % (42-75); Platelet Count 390 thou/uL (130-400); RBC Distribution Width 11.9 % (11.5-14.5); Reactive Lymphocytes 1 % (0-10); Red Blood Cell (RBC) Count 4.62 mill/uL (4.20-5.40); White Blood Cell (WBC) Count 22.1 thou/uL (4.8-10.8)
[2018-08-09] MEDS: Famotidine/PF 20 mg/2ml Vial SLOW IVP SCH ×2 (10:01→21:13)
[2018-08-09] MEDS: Carvedilol 6.25 MG TAB PO SCH ×2 (10:01→16:21)
[2018-08-09] MEDS: Nystatin Cream 30 GM TUBE TOP SCH ×2 (10:03→21:14)
--- NOTE | 2018-08-09 11:45 | PRG ---
DATE OF SERVICE: 08/09/2018 SERVICE: Pulmonary Medicine. INTERVAL HISTORY: The patient is doing outstanding from a cardiovascular and respiratory standpoint. She ran a fever couple of days ago, in the presumption she has urinary tract infection. She started on antimicrobial therapy and she broke her fever. Overnight, there were no significant events and she remains on room air. PHYSICAL EXAMINATION: VITAL SIGNS: Afebrile, pulse 70, blood pressure 142/70, respirations 18, and saturation 94% on room air. GENERAL: The patient is awake and alert, in no apparent distress. LUNGS: Very good air entry. Minimal rhonchi are present. No prolonged expiratory phase or wheezing is appreciated. HEART: Normal rate and regular. ABDOMEN: Soft, nontender, and nondistended. Bowel sounds are positive. MUSCULOSKELETAL: No cyanosis or clubbing. No pitting in the bilateral lower extremities. LABORATORY DATA: WBC 22.1, hemoglobin 14.4, platelets 390,000. Band count is dropping off to 3% and the neutrophil count overall is falling. INR 1.1. Blood cultures x2, C. diff is negative. Stool lactoferrin and occult blood are positive. IMAGING STUDIES: Pelvic ultrasound demonstrates normal uterus. Bladder is partially decompressed. ASSESSMENT: 1. Intracerebral hemorrhage with significant debility, status post PEG tube placement. 2. Hypertension. DISCUSSION AND PLAN: The patient is stable for discharge from the hospital. At this point, Pulmonary/Critical Care will only follow intermittently. Please call if she has any significant deterioration in function. Job ID: [id number]
[2018-08-09] MEDS: Amlodipine 10 MG TAB PER TUBE SCH (12:41)
--- NOTE | 2018-08-09 14:34 | PDOC.PN ---
- Subjective Encounter Start Date: 08/09/18 Encounter Start Time: 14:30 Subjective: f/u ICH with dysphagia s/p PEG tube tolerating Jevity 1.2 @ 60ml/h -: Awaiting Rehab options. More alert, interactive with family. - Objective MAR Reviewed: Yes Vital Signs & Weight: Vital Signs (12 hours) Temp Pulse Pulse Pulse Pulse Resp BP 08/09/18 12:41 62 127/76 08/09/18 11:36 98.1 F 64 18 08/09/18 10:01 136/91 H 08/09/18 09:45 75 76 67 08/09/18 08:00 08/09/18 07:46 99.6 F 70 18 08/09/18 04:24 98.4 F 73 16 BP BP BP BP Pulse Ox 08/09/18 12:41 08/09/18 11:36 127/76 95 08/09/18 10:01 08/09/18 09:45 136/91 H 156/91 H 138/90 08/09/18 08:00 94 L 08/09/18 07:46 142/70 H 94 L 08/09/18 04:24 164/84 H 95 Weight Admit Weight 161 lb Weight 156 lb 4.8 oz Most Recent Monitor Data Heart Rate from ECG 62 NIBP 103/71 NIBP BP-Mean 81 Respiration from ECG 19 SpO2 97 I&O: 08/08/18 08/09/18 08/10/18 06:59 06:59 06:59 Intake Total 70 30 Output Total 30 Balance -30 70 30 Result Diagrams: 08/09/18 05:05 08/08/18 04:34 Additional Labs: Microbiology 08/08/18 22:25 Stool - Loose Stool Occult Blood (WILMER) - Final 08/08/18 22:25 Stool - Loose Stool Lactoferrin - Final 08/04/18 18:30 Stool C. difficile GDH Antigen & Toxins - Final 08/07/18 07:14 Venous blood - Left Hand Blood Culture - Preliminary Specimen has been received and culture in progress. No Growth to date. 08/07/18 07:14 Venous blood - Left Hand Blood Culture - Preliminary NO GROWTH AT 48 HOURS 08/07/18 07:11 Venous blood - Right Hand Blood Culture - Preliminary Specimen has been received and culture in progress. No Growth to date. 08/07/18 07:11 Venous blood - Right Hand Blood Culture - Preliminary NO GROWTH AT 48 HOURS Laboratory Tests 08/01/18 08/02/18 08/03/18 06:55 08:25 05:40 WBC 11.6 H Hgb 11.0 L Neutrophils % Neutrophils % (Manual) Potassium 3.4 L 3.7 08/04/18 08/05/18 08/08/18 08:26 04:00 04:34 WBC 9.7 20.8 H Hgb Neutrophils % 73.2 Neutrophils % (Manual) 80 H Potassium 4.0 08/09/18 05:05 WBC Hgb Neutrophils % Neutrophils % (Manual) 75 Potassium EKG Reviewed by me: Yes (Tele - SR) Phys Exam - Physical Examination alert, aphasic, mumbling HEENT: PERRLA, sclera anicteric, oral pharynx no lesions Neck: no nodes, no JVD, supple, full ROM Respiratory: no wheezing, no rales, no rhonchi, clear to auscultation bilateral S1, S2 Cardiovascular: RRR, no significant murmur, no rub, gallop PEG intact, no erythema Gastrointestinal: soft, non-tender, no distention, positive bowel sounds Musculoskeletal: no edema, pulses present L hemiparesis, aphasic, dysphagia Skin: normal turgor, cap refill <2 seconds Dx/Plan (1) Dysphagia Code(s): R13.10 - DYSPHAGIA, UNSPECIFIED Status: Acute Qualifiers: Dysphagia type: oropharyngeal phase Qualified Code(s): R13.12 - Dysphagia, oropharyngeal phase Comment: PEG tube placed today, TF's currently at goal rate (2) ICH (intracerebral hemorrhage) Code(s): I61.9 - NONTRAUMATIC INTRACEREBRAL HEMORRHAGE, UNSPECIFIED Status: Acute Qualifiers: Intracerebral hemorrhage etiology: nontraumatic Cerebral hemorrhage location: cerebral hemisphere, cortical portion Laterality: right Qualified Code(s): I61.1 - Nontraumatic intracerebral hemorrhage in hemisphere, cortical Comment: NS offered decompressive SX but family refused. Discussed w at bedside continue conservative management.OT/PT/TELETYPE MECHANIC, Rehab screening (3) Left hemiparesis Code(s): G81.94 - HEMIPLEGIA, UNSPECIFIED AFFECTING LEFT NONDOMINANT SIDE Status: Acute Comment: PT/OT for mobilization and ROM exercises (4) UTI (urinary tract infection) Status: Acute Qualifiers: Urinary tract infection type: acute cystitis Comment: Suspected, start Rocephin 2gm IV daily, await final Ucx results (5) Cerebral amyloid angiopathy Code(s): E85.4 - ORGAN-LIMITED AMYLOIDOSIS; I68.0 - CEREBRAL AMYLOID ANGIOPATHY Status: Chronic (6) Neutrophilic leukocytosis Code(s): D72.9 - DISORDER OF WHITE BLOOD CELLS, UNSPECIFIED Status: Acute Comment: Suspect due to UTI and recent PEG insertion, continue Rocephin, add Vancomycin, serial CBC - Plan plan discussed w/ family, continue antibiotics, PT/OT, high school social studies tutor, speech therapy, DVT proph w/SCDs Stable currently -: Continue Rocephin 2gm IV daily -: Add Vancomycin 1gm IV BID -: Nutritional support with Jevity 1.2 @ 60ml/h -: AM lab: CBC * Rehab approval pending
[2018-08-09] MEDS: cefTRIAXone\\ROCEPHIN 2 GM in Sodium Chloride 0.9% 100 ML IVPB SCH (15:24)
[2018-08-09] MEDS: Vancomycin HCl 1 GM in Premix Bag 1 BAG IVPB SCH (16:21)
--- NOTE | 2018-08-09 18:37 | PRG ---
DATE OF SERVICE: 08/09/2018 SUBJECTIVE: Ms. Valentin has been tolerating her tube feeds well without any abdominal pain. She has been much more alert and interactive today. OBJECTIVE: Her abdomen is soft, nontender, and nondistended. PEG site appears healthy and clear. The abdominal binder was replaced after examination. The external bumper was loosened to 5 cm. IMPRESSION: 1. Dysphagia secondary to stroke. 2. She is tolerating her percutaneous endoscopic gastrostomy tube feeds well. RECOMMENDATIONS: 1. Continue tube feeds per dietitian recommendations. 2. I will sign off. Please call if GI can be of assistance. Job ID: [id number]
[2018-08-09 18:48] VITALS: BMI 25.9
[2018-08-10] MEDS: Vancomycin HCl 1 GM in Premix Bag 1 BAG IVPB SCH ×2 (03:42→14:13)
[2018-08-10 05:59] LABS: Band 5 % (5-11); Hemoglobin 12.3 g/dL (12.0-16.0); Lymphocytes 21 % (21-51); MDiff Complete? YES; Mean Corpuscular HGB CONC 32.9 g/dL (32.0-36.0); Mean Corpuscular Hemoglobin 31.9 pg (27.0-31.0); Mean Corpuscular Volume 96.9 fL (78.0-98.0); Mean Platelet Volume 8.4 fL (7.4-10.4); Monocytes 6 % (0-10); Neutrophil 67 % (42-75); Platelet Count 350 thou/uL (130-400); Platelet Morphology Comment Appears Adequate; RBC Distribution Width 11.7 % (11.5-14.5); Reactive Lymphocytes 1 % (0-10); Red Blood Cell (RBC) Count 3.86 mill/uL (4.20-5.40); White Blood Cell (WBC) Count 15.7 thou/uL (4.8-10.8)
[2018-08-10] MEDS: Nystatin Cream 30 GM TUBE TOP SCH ×2 (09:16→21:34)
[2018-08-10] MEDS: Carvedilol 6.25 MG TAB PO SCH ×2 (09:16→17:25)
[2018-08-10] MEDS: Famotidine/PF 20 mg/2ml Vial SLOW IVP SCH ×2 (09:16→21:34)
[2018-08-10] MEDS: Acetaminophen 325 MG TAB PO PRN (09:17)
[2018-08-10] MEDS: Amlodipine 10 MG TAB PER TUBE SCH (12:48)
[2018-08-10] MEDS: cefTRIAXone\\ROCEPHIN 2 GM in Sodium Chloride 0.9% 100 ML IVPB SCH (15:49)
--- NOTE | 2018-08-10 16:26 | PDOC.PN ---
- Subjective Encounter Start Date: 08/10/18 Encounter Start Time: 16:25 Subjective: f/u for ICH with L hemiparesis, dysphagia and aphasia s/p -: PEG tube at current goal TF rate. reports is more -: alert and responsive. - Objective MAR Reviewed: Yes Vital Signs & Weight: Vital Signs (12 hours) Temp Pulse Pulse Pulse Resp BP BP 08/10/18 15:55 99.0 F 65 16 08/10/18 12:48 62 125/60 08/10/18 11:39 60 58 L 134/75 08/10/18 11:02 97.9 F 62 16 08/10/18 09:16 114/72 08/10/18 08:00 98.4 F 65 18 BP BP Pulse Ox 08/10/18 15:55 121/63 96 08/10/18 12:48 08/10/18 11:39 114/55 L 08/10/18 11:02 125/60 95 08/10/18 09:16 08/10/18 08:00 114/72 94 L Weight Admit Weight 161 lb Weight 160 lb Most Recent Monitor Data Heart Rate from ECG 62 NIBP 103/71 NIBP BP-Mean 81 Respiration from ECG 19 SpO2 97 I&O: 08/09/18 08/10/18 08/11/18 06:59 06:59 06:59 Intake Total 70 120 60 Balance 70 120 60 Result Diagrams: 08/10/18 05:15 08/08/18 04:34 Additional Labs: Microbiology 08/08/18 22:25 Stool - Loose Stool Occult Blood (WILMER) - Final 08/08/18 22:25 Stool - Loose Stool Lactoferrin - Final 08/04/18 18:30 Stool C. difficile GDH Antigen & Toxins - Final 08/07/18 07:14 Venous blood - Left Hand Blood Culture - Preliminary Specimen has been received and culture in progress. No Growth to date. 08/07/18 07:14 Venous blood - Left Hand Blood Culture - Preliminary NO GROWTH AT 48 HOURS 08/07/18 07:11 Venous blood - Right Hand Blood Culture - Preliminary Specimen has been received and culture in progress. No Growth to date. 08/07/18 07:11 Venous blood - Right Hand Blood Culture - Preliminary NO GROWTH AT 48 HOURS Laboratory Tests 08/01/18 08/02/18 08/03/18 06:55 08:25 05:40 WBC 11.6 H Hgb 11.0 L Neutrophils % Neutrophils % (Manual) Potassium 3.4 L 3.7 08/04/18 08/05/18 08/08/18 08:26 04:00 04:34 WBC 9.7 20.8 H Hgb Neutrophils % 73.2 Neutrophils % (Manual) 80 H Potassium 4.0 08/09/18 05:05 WBC Hgb Neutrophils % Neutrophils % (Manual) 75 Potassium EKG Reviewed by me: Yes (Tele- SR) Phys Exam - Physical Examination alert, aphasic HEENT: PERRLA, sclera anicteric, oral pharynx no lesions Neck: no nodes, no JVD, supple, full ROM Respiratory: no wheezing, no rales, no rhonchi, clear to auscultation bilateral S1, S2 Cardiovascular: RRR, no significant murmur, no rub, gallop PEG tube in place Gastrointestinal: soft, non-tender, no distention, positive bowel sounds Musculoskeletal: no edema, pulses present L hemiparesis, dysphagia, aphasic Skin: normal turgor, cap refill <2 seconds Dx/Plan (1) Dysphagia Code(s): R13.10 - DYSPHAGIA, UNSPECIFIED Status: Acute Qualifiers: Dysphagia type: oropharyngeal phase Qualified Code(s): R13.12 - Dysphagia, oropharyngeal phase Comment: PEG tube placed today, TF's currently at goal rate with Jevity 1.2 (2) ICH (intracerebral hemorrhage) Code(s): I61.9 - NONTRAUMATIC INTRACEREBRAL HEMORRHAGE, UNSPECIFIED Status: Acute Qualifiers: Intracerebral hemorrhage etiology: nontraumatic Cerebral hemorrhage location: cerebral hemisphere, cortical portion Laterality: right Qualified Code(s): I61.1 - Nontraumatic intracerebral hemorrhage in hemisphere, cortical Comment: NS offered decompressive SX but family refused. Discussed w at bedside continue conservative management.OT/PT/AUTOMOTIVE PROFESSIONAL, Rehab screening (3) Left hemiparesis Code(s): G81.94 - HEMIPLEGIA, UNSPECIFIED AFFECTING LEFT NONDOMINANT SIDE Status: Acute Comment: PT/OT for mobilization and ROM exercises (4) UTI (urinary tract infection) Status: Acute Qualifiers: Urinary tract infection type: acute cystitis Comment: Suspected, start Rocephin 2gm IV daily, await final Ucx results (5) Cerebral amyloid angiopathy Code(s): E85.4 - ORGAN-LIMITED AMYLOIDOSIS; I68.0 - CEREBRAL AMYLOID ANGIOPATHY Status: Chronic (6) Neutrophilic leukocytosis Code(s): D72.9 - DISORDER OF WHITE BLOOD CELLS, UNSPECIFIED Status: Acute Comment: Suspect due to UTI and recent PEG insertion, continue Rocephin, add Vancomycin, serial CBC, improved - Plan plan discussed w/ family, continue antibiotics, PT/OT, social service coordinator, speech therapy, respiratory therapy, DVT proph w/SCDs Stable currently -: Nutritional support with Jevity 1.2 @65ml/h -: PT/OT/ST -: Continue Rocephin/Vancomycin -: Increase free-H2O per PEG * AM lab: CBC * Likelly to inpt rehab in 24-48h
[2018-08-10] MEDS ORDERED: diphenhydrAMINE 25 MG CAP PO PRN (16:59)
[2018-08-11] MEDS: Vancomycin HCl 1 GM in Premix Bag 1 BAG IVPB SCH ×2 (03:41→15:15)
[2018-08-11 06:15] LABS: Band 4 % (5-11); Eosinophils 2 % (0-10); Hemoglobin 11.8 g/dL (12.0-16.0); Lymphocytes 17 % (21-51); MDiff Complete? YES; Mean Corpuscular HGB CONC 33.8 g/dL (32.0-36.0); Mean Corpuscular Hemoglobin 32.9 pg (27.0-31.0); Mean Corpuscular Volume 97.3 fL (78.0-98.0); Mean Platelet Volume 8.5 fL (7.4-10.4); Monocytes 7 % (0-10); Neutrophil 67 % (42-75); Platelet Count 314 thou/uL (130-400); Platelet Morphology Comment Appears Adequate; RBC Distribution Width 11.6 % (11.5-14.5); Reactive Lymphocytes 3 % (0-10); Red Blood Cell (RBC) Count 3.59 mill/uL (4.20-5.40); White Blood Cell (WBC) Count 13.4 thou/uL (4.8-10.8)
[2018-08-11] MEDS: Nystatin Cream 30 GM TUBE TOP SCH (08:36)
[2018-08-11] MEDS: Famotidine/PF 20 mg/2ml Vial SLOW IVP SCH (08:37)
[2018-08-11] MEDS: Acetaminophen 325 MG TAB PO PRN (08:37)
[2018-08-11] MEDS: Carvedilol 6.25 MG TAB PO SCH (08:37)
[2018-08-11] MEDS: Amlodipine 10 MG TAB PER TUBE SCH (11:25)
--- NOTE | 2018-08-11 11:48 | PDOC.PN ---
- Subjective Encounter Start Date: 08/11/18 Encounter Start Time: 11:46 Patient seen and examined, at bedside, no new issues overnight, all questions answered. - Objective Vital Signs & Weight: Vital Signs (12 hours) Temp Pulse Resp BP BP Pulse Ox 08/11/18 11:25 94/57 L 08/11/18 08:37 139/65 08/11/18 07:55 98.1 F 62 16 139/65 96 08/11/18 07:10 95 08/11/18 04:00 99.2 F 63 20 141/65 H 94 L 08/11/18 00:00 98.7 F 61 20 118/70 94 L Weight Admit Weight 161 lb Weight 160 lb 4.8 oz Most Recent Monitor Data Heart Rate from ECG 62 NIBP 103/71 NIBP BP-Mean 81 Respiration from ECG 19 SpO2 97 I&O: 08/10/18 08/11/18 08/12/18 06:59 06:59 06:59 Intake Total 120 460 Balance 120 460 Result Diagrams: 08/11/18 05:03 08/08/18 04:34 Phys Exam - Physical Examination Constitutional: NAD HEENT: PERRLA, moist MMs Neck: no nodes, no JVD, supple Respiratory: no wheezing, no rales, no rhonchi Cardiovascular: RRR, no significant murmur, no rub Gastrointestinal: soft, non-tender, no distention Musculoskeletal: pulses present, edema present (trace) Dx/Plan (1) Acute encephalopathy Code(s): G93.40 - ENCEPHALOPATHY, UNSPECIFIED Status: Acute Comment: due to #1 improving (2) Dysphagia Code(s): R13.10 - DYSPHAGIA, UNSPECIFIED Status: Acute Qualifiers: Dysphagia type: oropharyngeal phase Qualified Code(s): R13.12 - Dysphagia, oropharyngeal phase Comment: PEG tube placed today, TF's currently at goal rate with Jevity 1.2 (3) ICH (intracerebral hemorrhage) Code(s): I61.9 - NONTRAUMATIC INTRACEREBRAL HEMORRHAGE, UNSPECIFIED Status: Acute Qualifiers: Intracerebral hemorrhage etiology: nontraumatic Cerebral hemorrhage location: cerebral hemisphere, cortical portion Laterality: right Qualified Code(s): I61.1 - Nontraumatic intracerebral hemorrhage in hemisphere, cortical Comment: NS offered decompressive SX but family refused. Discussed w at bedside continue conservative management.OT/PT/TAP OUT OPERATOR, Rehab screening (4) Left hemiparesis Code(s): G81.94 - HEMIPLEGIA, UNSPECIFIED AFFECTING LEFT NONDOMINANT SIDE Status: Acute Comment: PT/OT for mobilization and ROM exercises (5) Uncontrolled hypertension Code(s): I10 - ESSENTIAL (PRIMARY) HYPERTENSION Status: Acute Comment: improving.Titrated Nicardipine drip off.Continue Amlodipine and Coreg - Plan * Pending arrangements to rehab * cont current plan of care * DC to rehab once arrangements made * case and plan d/w patient's at length, he understood and agreed with this plan
[2018-08-11] MEDS: cefTRIAXone\\ROCEPHIN 2 GM in Sodium Chloride 0.9% 100 ML IVPB SCH (14:05)
[2018-08-11 15:37] VITALS: TEMP 98.9
[2018-08-11] MEDS ORDERED: Carvedilol 6.25 MG TAB PO SCH (17:00)
[2018-08-11 17:51] VITALS: BP 125/84
--- NOTE | 2018-08-12 12:34 | PDOC.EVN ---
Event Note - Event Note Event Note: DC SUMMARY #[id number]
--- NOTE | 2018-08-12 23:49 | DIS ---
DATE OF ADMISSION: 07/30/2018 DATE OF DISCHARGE: 08/11/2018 ADMITTING DIAGNOSES: Intracranial bleed, hypertension, aphasia, respiratory failure. DISCHARGE DIAGNOSES: Acute encephalopathy, dysphagia, intracranial bleed, hypertension, left-sided hemiparesis. HOSPITAL COURSE: This is a 72-year-old female, who was admitted initially to Neurosurgery team, seen by ICU as well as Internal Medicine. The patient did not have any surgical procedure or intervention done, was admitted to the ICU, was observed for about 15 days with no improvement of physical condition. The patient thus was set up for outpatient rehab for further management and care. PEG tube was placed for the patient for feeding. The plan was to send the patient to [facility] rehab for a little while if she got better and then proceed to send her to [place] were the patient's family and patient are from. The patient's had communicated with her physicians in [place] who had agreed to accept the patient to rehab in [place] after a few days in rehab here. Further course and plan, please see Neurosurgery as this is mainly a neurosurgical patient sent to the Internal Medicine team at point in time of discharge. Further management care all to be taken care of outpatient rehab. Case and plan discussed with the patient's at length from the Internal Medicine team for the medical perspective. He understood and agreed with this plan. DISPOSITION: Rehab. FOLLOWUP: Follow up with PCP and Neurosurgery within one week. CONDITION: Stable. PROGNOSIS: Poor. DIET: PEG tube feedings. ACTIVITY: As tolerated with assistance as needed. Once again, case and plan discussed at length with the patient's son from the medical perspective. He was advised to ask all questions from neurosurgery or any surgical questions with the Surgery Team. He understood and agreed with the plan from the medical perspective. Job ID: [id number]
== END 2018-08-11 19:26 | DRG 64 ==
LOC: ERS 15:35 → CCU 15:55 → EDBD 15:55 → IMCU/EMU 08-04 17:01 → 2SE 08-06 20:08
PROVIDERS: ADMIT Neurological Surgery; ATTEND Internal Medicine
PROC: 0DH63UZ Insertion of Feeding Device into Stomach, Percutaneous Approach (ICD-10-PCS; principal; 2018-08-08)
PROC: 3E0G76Z Introduction of Nutritional Substance into Upper GI, Via Natural or Artificial Opening (ICD-10-PCS; 2018-08-08)
DX: I61.1 Nontraumatic intracerebral hemorrhage in hemisphere, cortical (principal); G93.6 Cerebral edema; G93.5 Compression of brain; G81.94 Hemiplegia, unspecified affecting left nondominant side; E85.4 Organ-limited amyloidosis; G93.49 Other encephalopathy; R47.01 Aphasia; I68.0 Cerebral amyloid angiopathy; R29.810 Facial weakness; I60.9 Nontraumatic subarachnoid hemorrhage, unspecified; R13.12 Dysphagia, oropharyngeal phase; I10 Essential (primary) hypertension; R53.81 Other malaise; R19.7 Diarrhea, unspecified; E87.6 Hypokalemia; F03.90 Unspecified dementia, unspecified severity, without behavioral disturbance, psychotic disturbance, mood disturbance, and anxiety; R40.2222 Coma scale, best verbal response, incomprehensible words, at arrival to emergency department; R40.2142 Coma scale, eyes open, spontaneous, at arrival to emergency department; R40.2342 Coma scale, best motor response, flexion withdrawal, at arrival to emergency department; I69.119 Unspecified symptoms and signs involving cognitive functions following nontraumatic intracerebral hemorrhage; Z79.899 Other long term (current) drug therapy
CPT/HCPCS: 36415; 36416; 70450; 71045; 74018; 76856; 80048; 80053; 81001; 82274; 82550; 83630; 84484; 85007; 85025; 85027; 85610; 85730; 87040; 87324; 87449; 93005; 94760; 96374; J0131; J0360; J0696; J2001; J2405; J2704; J2997; J3370; J3490; J7050; Q0163; S0028

== ENCOUNTER 2018-08-13 22:42 | Observation (INO) | payer MEDICARE, OTHER ==
[~2018-08-13 22:42] MED LIST: GASTROGRAFIN 30 ML BOT ONE
[2018-08-14 00:19] LABS: #Eosinphils 0.1 thou/uL (0.0-0.7); #Lymphocytes 2.1 thou/uL (1.20-3.40); #Monocytes 0.6 thou/uL (0.11-0.59); #Neutrophils 7.5 thou/uL (1.40-6.50); %Basophils 0.2 % (0.0-1.0); %Lymphocytes 20.2 % (21.0-51.0); %Monocytes 6.1 % (0.0-10.0); %Neutrophils 72.6 % (42.0-75.0); Hemoglobin 11.6 g/dL (12.0-16.0); Mean Corpuscular HGB CONC 32.5 g/dL (32.0-36.0); Mean Corpuscular Hemoglobin 31.3 pg (27.0-31.0); Mean Corpuscular Volume 96.1 fL (78.0-98.0); Mean Platelet Volume 8.2 fL (7.4-10.4); Platelet Count 343 thou/uL (130-400); RBC Distribution Width 11.6 % (11.5-14.5); Red Blood Cell (RBC) Count 3.71 mill/uL (4.20-5.40); White Blood Cell (WBC) Count 10.4 thou/uL (4.8-10.8)
--- NOTE | 2018-08-14 00:34 | RAD ---
Radiograph abdomen one view: 08/14/2018 at 11:31 PM HISTORY: 72-year-old female status post PEG tube placement FINDINGS: Supine image. 30 mL Gastrografin injected into PEG tube. Contrast within the collapsed lumen of stoma ch. No evidence of extravasation. IMPRESSION: Intraluminal position of distal portion of percutaneous gastrostomy tube confirmed.
[2018-08-14 00:38] LABS: ALT (SGPT) 33 U/L (8-55); AST (SGOT) 29 U/L (5-34); Albumin 3.3 g/dL (3.4-4.8); Alkaline Phosphatase 78 U/L (40-150); Anion Gap 12 mmol/L (10-20); BUN (Urea Nitrogen) 28 mg/dL (9.8-20.1); Bilirubin, Total 0.4 mg/dL (0.2-1.2); Calc. Creatinine Clearance 0 mL/min (70-130); Calcium 9.1 mg/dL (7.8-10.44); Carbon Dioxide 28 mmol/L (23-31); Chloride 104 mmol/L (98-107); Estimated GFR-MDRD 86; Globulin 3.2 g/dL (2.4-3.5); Glucose 102 mg/dL (83-110); Potassium 4.3 mmol/L (3.5-5.1); Protein, Total 6.5 g/dL (6.0-8.3); Sodium 140 mmol/L (136-145)
[2018-08-14] MEDS ORDERED: Sodium Chloride 0.9% 1,000 ML IV SCH (07:56)
[2018-08-14] MEDS ORDERED: Nystatin Powder 15 GM BOT TOP SCH (09:00)
--- NOTE | 2018-08-14 12:22 | HP ---
CHIEF COMPLAINT: Apparently, the patient pulled out the PEG tube. She was sent out from [facility] for that, to be evaluated by GI. As far as we know, there is no any other issue at this point. She was just discharged from the hospital on the for acute nontraumatic cerebral bleeding. PAST MEDICAL HISTORY: 1. Previous intracranial bleed in 2005 in the right temporal area. 2. Chronic cognitive difficulty secondary to #1. 3. Cerebral amyloid angiopathy. ALLERGIES: NONE. FAMILY HISTORY: Unknown. SOCIAL HISTORY: Unclear whether she smoked prior to her CVA. There is no any family member available at this point. REVIEW OF SYSTEMS: Unobtainable secondary to the patient's nonverbal status. CODE STATUS: Full. CURRENT MEDICATIONS: 1. Pepcid 20 mg twice a day. 2. Levofloxacin 250 mg once a day. 3. Carvedilol 6.25 mg once a day. 4. Memantine 10 mg once a day. 5. MiraLAX 17 g once a day. PHYSICAL EXAMINATION: GENERAL: She is not in any distress during my visit. She does not follow any commands. She is nonverbal. She looks to the right most of the time. VITAL SIGNS: Her blood pressure is 116/64, pulse is 70, respiratory rate is 16, pulse oximetry is 97% on room air, and her temperature is 98.7. HEENT: Her pupils are responding to light. Oral mucosa is moist. NECK: Supple. LUNGS: Clear. HEART: S1 and S2 normal. No S3. No S4. No any murmur. ABDOMEN: Soft. The PEG tube is temporarily replaced. Bowel sounds are present. EXTREMITIES: No clubbing, cyanosis, or edema. NEUROLOGICAL: She does not follow my commands. Alert and oriented x0. Nonverbal. She has weakness 3/5 in the left upper and left lower extremity. LABORATORY DATA: White count of 10.4, hemoglobin 11.6, hematocrit 35.7, platelet count is 343. Chemistry: Normal electrolytes. BUN 28, creatinine 0.67, albumin 3.3. The rest of chemistry within normal limits. DIAGNOSTIC DATA: X-ray of the abdomen personally reviewed by me showed intraluminal position of distal portion of percutaneous gastrostomy tube confirmed. IMPRESSION: 1. Status post removal of percutaneous endoscopic gastrostomy tube by the patient. 2. Status post recent intracranial bleeding. 3. Hypertension. 4. Status post previous intracerebral bleeding in 2005 and chronic cognitive changes as a consequence, so she has some anemia on her CBC done during this emergency room visit. PLAN: Admission for observation. Condition is fair. Activity, bedrest. GI consultation for PEG tube replacement. Dr. Naylor is notified. We will do IV fluids 100 mL of normal saline for now, and as soon as the new PEG tube is functional, we can send her back to [facility]. SCD for DVT prophylaxis. No heparin since she had recent bleeding, and she is full code. Job ID: [id number]
[2018-08-14] MEDS ORDERED: Lidocaine 1% PF 5 ML VIAL ONE (13:39)
[2018-08-14] MEDS ORDERED: PROPOFOL 200 MG/20 ML VIAL ONE (13:39)
--- NOTE | 2018-08-14 19:40 | OP ---
DATE OF PROCEDURE: 08/14/2018 PROCEDURE PERFORMED: Esophagogastroduodenoscopy with PEG. PREMEDICATION: Given by Anesthesiology Department. PREPROCEDURE DIAGNOSIS: Dislodged G-tube that was placed 7 days ago. POSTPROCEDURE DIAGNOSES: 1. Normal upper endoscopy. 2. Status post placement of new 20-St Helenian G-tube. DESCRIPTION OF PROCEDURE: Written consents were obtained prior to procedure. After adequate sedation, forward-viewing endoscope was advanced down the stomach under direct vision to the second portion of duodenum. The duodenum, the stomach, and esophagus appeared normal. The inflated Macias catheter was visualized. The balloon was deflated with extraction of the Macias catheter. The guidewire was then placed through the previous hole. A snare was then used to grab the guidewire and brought out along with the endoscope. A new 20-St Helenian G-tube was attached to the guidewire and was then pulled back down into the gastric lumen. A external latch was then firmly secured. Repeat endoscopy confirmed good placement. The patient tolerated the procedure well. ASSESSMENT: Status post placement of a 20-St Helenian gastrostomy feeding tube. RECOMMENDATIONS: 1. The patient can be transferred back to rehab. 2. May resume tube feeding later today. Job ID: [id number]
--- NOTE | 2018-08-16 02:17 | DIS ---
DATE OF ADMISSION: 08/13/2018 DATE OF DISCHARGE: 08/14/2018 DIAGNOSIS AT THE TIME OF DISCHARGE: 1. Status post removal of percutaneous endoscopic gastrostomy tube by the patient and status post replacement by GI. 2. Status post recent intracranial bleeding. 3. Hypertension next. 4. Status post previous intracerebral bleeding in 2005 and chronic cognitive changes as a consequence. CONSULTS: Dr. Sukhi Pereyra, Gastrointestinal Service. PROCEDURE: Placement of the PEG tube. HOSPITAL COURSE: The patient was a 72-year-old female, who was sent from [facility] after she pulled out her PEG tube and did not show any other abnormalities. She got admitted for observation. She was taken to the procedure room and Dr. Pereyra put the new PEG tube in and this was secured and special cover was used to protect the PEG tube from being pulled again around her abdomen. Then finally, the patient was discharged back to the rehab center where she came from to continue her regimen. She is stable at the time of discharge. Job ID: [id number]
== END 2018-08-14 14:34 | disposition home or self-care (01) ==
LOC: ERS 22:42 → ERHOLD 23:55 → T4-A 08-14 16:53
PROVIDERS: ADMIT Hospitalist; ATTEND Hospitalist
PROC: 0DH63UZ Insertion of Feeding Device into Stomach, Percutaneous Approach (ICD-10-PCS; principal; 2018-08-14)
DX: Z43.1 Encounter for attention to gastrostomy (principal); I69.119 Unspecified symptoms and signs involving cognitive functions following nontraumatic intracerebral hemorrhage; E85.4 Organ-limited amyloidosis; I68.0 Cerebral amyloid angiopathy; I10 Essential (primary) hypertension; D64.9 Anemia, unspecified; Z79.2 Long term (current) use of antibiotics; Z79.899 Other long term (current) drug therapy; Z88.8 Allergy status to other drugs, medicaments and biological substances
CPT/HCPCS: 36415; 43762; 74018; 80053; 85025; G0378; J0690; J2001; J2704; Q9963